=== PATIENT | female | born 1950 | race Caucasian/White ===

== ENCOUNTER → 2018-03-27 | Outpatient (REF) | payer MEDICARE, OTHER, SELFPAY | LOC: LAB 15:24 | PROVIDERS: PCP Orthopaedic Surgery; Visit Provider Orthopaedic Surgery | DX: T84.093A Other mechanical complication of internal left knee prosthesis, initial encounter (principal); T81.4XXD Infection following a procedure, subsequent encounter | CPT/HCPCS: 87070; 87075; 87205; 87801; 89051 ==

== ENCOUNTER 2018-06-10 07:19 | Emergency (ER) | payer MEDICARE, OTHER, SELFPAY ==
[2018-04-16 18:56] VITALS: BMI 18.3
[2018-06-10] VITALS (7 sets, daily range): BP systolic 106–122; BP diastolic 58–78; PULSE 71–91; RESP 16–21; TEMP 36.9; O2SAT 99–100; BMI 17.9
--- NOTE | 2018-06-10 07:34 | ED.ABDPAIN ---
HPI - Abdominal Pain General Chief Complaint: Abdominal Pain Stated Complaint: SEVERE STOMACH PAIN, NAUSEA Time Seen by Provider: 06/10/18 07:27 Source: patient Mode of arrival: ambulatory History of Present Illness HPI narrative: Patient is a 67-year-old female who presents with vomiting and diarrhea. She has had a complicated last 6-7 months. She had a knee replaced in December, the knee got infected she had multiple courses of IV antibiotics and he was taken out she continued IV antibiotics. She had developed atrial fibrillation after surgery. On her knee was again replaced. She recently had blood work is with her primary care provider add a stool sample she was found to have C diff. She said that she has always had some loose watery diarrhea some of which started before December but has certainly gotten worse since all of her surgeries and antibiotics. She has an appointment to see an infectious disease specialist but not until later this month she was started on Dificid 5 days ago. This morning she vomited 2-5 times and has some abdominal cramping. No fevers. She feels like her diarrhea is about the same. She is also on iron through her stool is dark. She actually says she has had some abdominal cramping off and on for about the last 1 week what it had been bad. She denies any severe pain now. However she is also on Eliquis for her new onset atrial fibrillation. She is not vomiting any blood. MD complaint: abdominal pain Related Data Home Medications Medication Instructions Recorded Confirmed acetaminophen 650 mg PO Q8H PRN 03/17/18 06/10/18 apixaban 5 mg PO BID 03/17/18 06/10/18 ascorbic acid (vitamin C) 1,000 mg PO QDAY 03/17/18 06/10/18 cholecalciferol (vitamin D3) 4,000 unit PO DAILY 03/17/18 06/10/18 ferrous sulfate 325 mg PO BID 03/17/18 06/10/18 ondansetron HCl 4 mg PO Q6H PRN 03/17/18 06/10/18 adhevke-[id number]-silicon 1 tab PO DAILY 06/10/18 06/10/18 [ADVANCED Calcium] dexlansoprazole [Dexilant] 1 cap PO QPM 06/10/18 06/10/18 diltiazem HCl [DILT-XR] 1 cap PO DAILY 06/10/18 06/10/18 fidaxomicin [Dificid] 200 mg PO BID 06/10/18 06/10/18 vitamin B complex 1 cap PO DAILY 06/10/18 06/10/18 Previous Rx's Medication Instructions Recorded tramadol 100 mg PO QID PRN #60 tab 04/18/18 Allergies Allergy/AdvReac Type Severity Reaction Status Date / Time morphine Allergy Intermediate Nausea Verified 04/16/18 15:16 ceftriaxone [CEFTRIAXONE] AdvReac Severe INTERMITTENT Verified 04/16/18 15:16 FEVERS propoxyphene [From DARVON] AdvReac Intermediate nausea/vomi Verified 04/16/18 15:16 ting Review of Systems Review of Systems All systems reviewed & are unremarkable except as noted in HPI and below Constitutional Denies chills, Denies fever(s), Denies lethargy and Denies weakness Cardiovascular Denies chest pain, Denies irregular heart rhythm, Denies lightheadedness, Denies palpitations, Denies dyspnea, Denies dyspnea on exertion and Denies orthopnea Respiratory Denies cough, Denies dyspnea, Denies dyspnea on exertion and Denies wheezing Gastrointestinal Gastrointestinal: Reports as per HPI Musculoskeletal Denies back pain, Denies muscle weakness, Denies numbness and Denies tingling Integumentary/Breasts Denies pruritus, Denies erythema, Denies rash and Denies wounds Neurologic Denies numbness, Denies tingling and Denies weakness Endocrine Denies palpitations Allergic/Immunologic Denies wheezing [facility] Medical History Anemia (Acute) History of total right knee replacement (Acute) 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) Osteoarthritis (Acute) Septic arthritis (Acute) Septic shock (Acute) Surgical History Status post revision of total replacement of right knee (Acute) Hx of total knee arthroplasty (Acute) Social History Smoking Status: Never smoker alcohol intake: current Exam Initial Vital Signs Initial Vital Signs: Vital Signs Temperature 98.4 F 06/10/18 07:29 Pulse Rate 91 H 06/10/18 07:29 Respiratory Rate 20 06/10/18 07:29 Blood Pressure 119/67 06/10/18 07:29 Pulse Oximetry 100 06/10/18 07:29 Const General: cooperative, well developed and No in distress Nutritional Appearance: thin Orientation: alert, awake and oriented x3 HENMT Head: normal to inspection and normocephalic Eyes Pupils: PERRL EOM: EOM intact bilaterally Neck Neck: full ROM and no meningeal signs Chest Chest: normal inspection of the chest Resp Effort & Inspection: normal respiratory effort Auscultation: clear to auscultation bilaterally Cardio Rhythm: regular rhythm Heart Sounds: S1 normal and S2 normal GI Inspection: normal to inspection Palpation: soft and tender (mild diffuse tenderness) Skin General: no rashes or lesions noted, No jaundice and No petechiae Neuro General: alert, awake and oriented x3 Course Orders Ordered: ED Orders 06/10/18 09:10 CT abdomen pelvis w con Stat 06/10/18 11:26 Consult to Physician Stat Discontinued Medications Sodium Chloride (Normal Saline 0.9%) 1,000 mls @ 1,000 mls/hr IV CONT GAVI Last Infusion: 06/10/18 10:52 Dose: 0 mls/hr Admin: 06/10/18 08:03 Dose: 1,000 mls/hr Sodium Chloride (Normal Saline 0.9%) 1,000 mls @ 150 mls/hr IV CONT GAVI Last Infusion: 06/10/18 15:43 Dose: 0 mls/hr Admin: 06/10/18 15:02 Dose: 150 mls/hr Ketorolac Tromethamine (Toradol) 15 mg IV NOW ONE Stop: 06/10/18 07:51 Last Admin: 06/10/18 08:03 Dose: 15 mg Ondansetron HCl (Zofran) 4 mg IV NOW ONE Stop: 06/10/18 07:51 Last Admin: 06/10/18 08:03 Dose: 4 mg Consultations Consultation #1: Dr. Cardenas coming to evaluate patient. Will go to OR. Realized on Eliquis, we don't have reversal, with need factor 10 a, she does not have major hemorrhage on does not require Kecentra although we do have that. Time: 10:09 Consultation #2: Dr. Bravo, at [facility] has been updated patient's symptoms test results and availability here at [facility]. She graciously accepts patient for transfer. Time: 12:44 Vital Signs - 8 hr 06/10/18 10:16 06/10/18 11:03 06/10/18 12:02 Pulse Rate 79 79 77 Respiratory Rate 18 20 16 Blood Pressure [Right Arm] 114/62 114/63 106/70 Pulse Oximetry 100 99 100 06/10/18 13:00 06/10/18 13:30 06/10/18 14:30 Pulse Rate 71 75 80 Respiratory Rate 21 18 20 Blood Pressure [Right Arm] 116/78 122/58 H 116/62 Pulse Oximetry 100 100 100 MDM - Abdominal Pain Lab Data Result diagrams: 06/10/18 07:38 06/10/18 07:38 Lab Results 06/10/18 06/10/18 06/10/18 Range/Units 07:38 07:38 07:38 WBC 7.9 (4.5-11.0) X10^3/uL RBC 3.74 L (4.0-5.2) X10^6/uL Hgb 10.7 L (12.0-16.0) g/dL Hct 32.3 L (36-46) % MCV 86.4 (80-100) fL MCH 28.5 (26-34) PG MCHC 33.0 (30-36) % RDW 14.2 (11.6-14.8) % Plt Count 398 (150-400) X10^3/uL Neut % (Auto) 79.6 H (50-75) % Lymph % (Auto) 9.0 L (25-40) % [place] % (Auto) 8.9 (3-14) % Eos % (Auto) 1.8 L (2-4) % Baso % (Auto) 0.7 (0-2) % Neut # (Auto) 6300 H (7745-1480) /uL PT (10.1-12.7) SECONDS INR (0.9-1.3) APTT (26.4-36.2) SECONDS Sodium 142 (137-145) mmol/L Potassium 3.7 (3.4-5.1) mmol/L Chloride 99 (98-107) mmol/L Carbon Dioxide 33 H (22-32) mmol/L BUN 11 (7-17) mg/dL Creatinine 0.60 (0.52-1.04) mg/dL Estimated GFR > 60.0 (>60) mL/min BUN/Creatinine Ratio 18.3 (6-22) Glucose 101 (80-110) mg/dL Lactate 0.8 (0.7-2.1) mmol/L Calcium 9.4 (8.4-10.2) mg/dL Total Bilirubin 0.5 (0.2-1.3) mg/dL AST 26 (14-36) IU/L ALT 22 (9-52) IU/L Alkaline Phosphatase 76 (38-126) U/L Total Protein 6.8 (6.3-8.2) g/dL Albumin 3.9 (3.5-5.0) g/dL Globulin 2.9 (1.7-4.1) g/dL Albumin/Globulin Ratio 1.3 (1.0-2.8) Lipase 108 (23-300) U/L 06/10/18 Range/Units 07:38 WBC (4.5-11.0) X10^3/uL RBC (4.0-5.2) X10^6/uL Hgb (12.0-16.0) g/dL Hct (36-46) % MCV (80-100) fL MCH (26-34) PG MCHC (30-36) % RDW (11.6-14.8) % Plt Count (150-400) X10^3/uL Neut % (Auto) (50-75) % Lymph % (Auto) (25-40) % [place] % (Auto) (3-14) % Eos % (Auto) (2-4) % Baso % (Auto) (0-2) % Neut # (Auto) (2116-9680) /uL PT 19.1 H (10.1-12.7) SECONDS INR 1.8 H (0.9-1.3) APTT 33 (26.4-36.2) SECONDS Sodium (137-145) mmol/L Potassium (3.4-5.1) mmol/L Chloride (98-107) mmol/L Carbon Dioxide (22-32) mmol/L BUN (7-17) mg/dL Creatinine (0.52-1.04) mg/dL Estimated GFR (>60) mL/min BUN/Creatinine Ratio (6-22) Glucose (80-110) mg/dL Lactate (0.7-2.1) mmol/L Calcium (8.4-10.2) mg/dL Total Bilirubin (0.2-1.3) mg/dL AST (14-36) IU/L ALT (9-52) IU/L Alkaline Phosphatase (38-126) U/L Total Protein (6.3-8.2) g/dL Albumin (3.5-5.0) g/dL Globulin (1.7-4.1) g/dL Albumin/Globulin Ratio (1.0-2.8) Lipase (23-300) U/L Point of care testing: Urine Dip Bedside Urine Glucose Negative Bedside Urine Bilirubin - Negative Bedside Urine Ketone - Negative Urine Specific [place] 1.015 Bedside Urine Occult Blood - Negative Bedside Urine pH 6.0 Bedside Urine Protein - Negative Bedside Urine Urobilinogen - Negative Bedside Urine Nitrite - Negative Bedside Urine Leukocytes - Negative Esterase Imaging Data CT scan - abdomen: Radiologist's impression: PROCEDURE: CT ABDOMEN PELVIS W CON INDICATIONS: pain vomiting, mid abdominal pain TECHNIQUE: After the administration of oral and intravenous contrast, 5 mm thick sections acquired from the diaphragms to the symphysis. 5 mm thick coronal and sagittal reformats were performed. For radiation dose reduction, the following was used: automated exposure control, adjustment of mA and/or kV according to patient size. COMPARISON: None. FINDINGS: Image quality: Excellent. ABDOMEN: Lung bases: Lung bases are clear. Heart size is normal. Solid organs: Liver is normal in size and enhancement. Gallbladder appears normal. Biliary system is non-dilated. Pancreas enhances normally. Spleen is normal in size and enhancement. No adrenal nodules. Kidneys are normal in size and enhancement, without hydronephrosis. Peritoneum and bowel: Stomach and proximal small bowel loops are normal in caliber and wall thickness. More inferiorly the small bowel becomes mildly dilated towards the right lower quadrant and demonstrates feculent transformation of small bowel contents in areas where the small bowel measures approximately 3.1-3.2 cm in maximal dimension. For example, refer to the small bowel loop at the right lower quadrant and series 2 image 61. This leads to the right colon, where much of the right colon is intussuscepted and extends into the proximal transverse colon, with the combined diameter of the area of intussusception measuring up to 5.7 cm in axial dimension and over an estimated 15 cm in length with the intussusception area traversing first anteriorly and then leftward. Within the intussuscepted portion of colon mesenteric arteries and veins appear patent several mildly prominent lymph nodes can be seen measuring almost 10 mm in diameter and rounded. For example, please refer to series 2 image 53. No free air. There is a small amount of free fluid within the leaves of the mesentery and in the hepatorenal space near the posterior border of the lower liver, but no definite peritoneal masses are seen. Nodes and vessels: No retroperitoneal or mesenteric adenopathy. Aorta and inferior vena cava are normal in caliber. Miscellaneous: No ventral hernias. PELVIS: Genitourinary: Bladder wall thickness is normal. Miscellaneous: No inguinal hernias or adenopathy. The intussusception noted during the abdominal portion of this report above traverses into the pelvis do to redundancy of the transverse colon, and the left colon and sigmoid colon are relatively collapsed indicating a significant degree of obstructive influence by the intussusception. Sigmoid diverticulosis is present, relatively prominent, but no acute diverticulitis is seen. Slight free fluid deep within the pelvis. Bones: No suspicious bony lesions. No vertebral body compression fractures. IMPRESSION: The large area of colonic intussusception noted within the abdomen/pelvis appears to involve much of the right colon and a portion of the transverse colon, with early obstructive influence on the distal small bowel. Oral contrast has transited through much of the small bowel, however, indicating that the degree of obstruction is not complete. The lead point of the intussusception is within the middle third of the transverse colon and likely is associated with a colonic malignancy given the mural thickening of the intussusception and the mild prominence of lymph nodes within the intussuscepted mesentery fat along the mesenteric vessels. No distant metastatic disease is seen. Surgical consultation is recommended, small amount of free fluid noted within the peritoneal space does not appear associated with peritoneal masses. No distant adenopathy or metastatic disease involving the lung bases or liver is seen. These findings were immediately discussed in detail with the emergency room physician caring for the patient. Dictated by: Kayode Goodrich M.D. on 06/10/2018 at 9:45 Approved by: Kayode Goodrich M.D. on 06/10/2018 at 10:00 [facility] [place] Narrative Medical decision making narrative: Patient has been all smoking weight since all the complications with her knee she has been unable to keep her put any weight on. She started having some abdominal discomfort last week she has had some cramping. She had 2-5 episodes of vomiting this morning. No bloody diarrhea. She is found to have 0 large colonic intussusception. Unable to have surgery here due to Eliquis. She may require pre operative factor Xa. The patient is transferred to [facility] for further management. Discharge Plan Departure Patient Disposition: [facility] Clinical Impression: Colonic intussusception Discharge Date/Time: 06/10/18 15:30 Interventions: ED Discharge Assessment Last Done: 06/10/18 15:41 Prescriptions: No Action ondansetron HCl 4 mg Tablet 4 mg PO Q6H PRN (Reason: Nausea And Vomiting) RF: 0 acetaminophen 650 mg Tablet Extended Release 650 mg PO Q8H PRN (Reason: Pain) RF: 0 ascorbic acid (vitamin C) 500 mg Tablet 1,000 mg PO QDAY RF: 0 ferrous sulfate 325 mg (65 mg iron) Tablet 325 mg PO BID RF: 0 cholecalciferol (vitamin D3) 2,000 unit Tablet 4,000 unit PO DAILY RF: 0 apixaban 5 mg Tablet 5 mg PO BID RF: 0 tramadol 50 mg Tablet 100 mg PO QID PRN (Reason: Moderate Pain) Qty: 60 RF: 0 dexlansoprazole [Dexilant] 60 mg capsule,biphase delayed releas 1 cap PO QPM RF: 0 diltiazem HCl [DILT-XR] 120 mg capsule,ext.rel 24h degradable 1 cap PO DAILY RF: 0 vitamin B complex Capsule 1 cap PO DAILY RF: 0 fidaxomicin [Dificid] 200 mg tablet 200 mg PO BID RF: 0 ipgtsve-wbcakhqf-P0-K2-silicon [ADVANCED Calcium] 200 mg calcium- 200 unit Tablet 1 tab PO DAILY RF: 0 Referrals: Sridhar Sawyer MD [Primary Care Provider] -
--- NOTE | 2018-06-10 08:00 | PC.NURSE ---
C-DIFF CONTACT PRECAUTIONS PLACED OUTSIDE OF ROOM.
[2018-06-10] MEDS: SODIUM CHLORIDE 0.9% 1,000 ML 1000 ML IV (08:03)
[2018-06-10] MEDS: ONDANSETRON 4 MG/2 ML INJ IV (08:03)
[2018-06-10] MEDS: KETOROLAC 60 MG/2 ML VIAL 15 MG IV (08:03)
[2018-06-10 08:11] LABS: Add Manual Diff / Slide Review NO; Basophils Percent Auto 0.7 % (0-2); Eosinophils Percent Auto 1.8 % (2-4); Hematocrit 32.3 % (36-46); Hemoglobin 10.7 g/dL (12.0-16.0); Mean Corpuscular Hemoglobin 28.5 PG (26-34); Mean Corpuscular Volume 86.4 fL (80-100); Monocytes Percent Auto 8.9 % (3-14); Neutrophils Absolute Auto 6300 /uL (3000-5900); Neutrophils Percent Auto 79.6 % (50-75); Platelet Count 398 X10^3/uL (150-400); Red Blood Cell Count 3.74 X10^6/uL (4.0-5.2); Red Cell Distribution Width 14.2 % (11.6-14.8); White Blood Cell Count 7.9 X10^3/uL (4.5-11.0)
[2018-06-10 08:21] LABS: Alanine Aminotransferase 22 IU/L (9-52); Albumin 3.9 g/dL (3.5-5.0); Albumin Globulin Ratio 1.3 (1.0-2.8); Alkaline Phosphatase 76 U/L (38-126); Aspartate Aminotransferase 26 IU/L (14-36); BUN Creatinine Ratio 18.3 (6-22); Bilirubin Total 0.5 mg/dL (0.2-1.3); Blood Urea Nitrogen 11 mg/dL (7-17); Calcium 9.4 mg/dL (8.4-10.2); Carbon Dioxide 33 mmol/L (22-32); Chloride 99 mmol/L (98-107); Estimated Glomerular Filt Rate > 60.0 mL/min (>60); Globulin 2.9 g/dL (1.7-4.1); Glucose 101 mg/dL (80-110); HEMOLYSIS < 15 (0-50); Lipase 108 U/L (23-300); Potassium 3.7 mmol/L (3.4-5.1); Sodium 142 mmol/L (137-145); Total Protein 6.8 g/dL (6.3-8.2)
[2018-06-10 08:23] LABS: Lactate (Lactic Acid) 0.8 mmol/L (0.7-2.1)
--- NOTE | 2018-06-10 08:40 | PC.NURSE ---
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 PER PROVIDER ORDERS.
--- NOTE | 2018-06-10 09:10 | DI.CT.S_ITS ---
PROCEDURE: CT ABDOMEN PELVIS W CON INDICATIONS: pain vomiting, mid abdominal pain TECHNIQUE: After the administration of oral and intravenous contrast, 5 mm thick sections acquired from the diaphragms to the symphysis. 5 mm thick coronal and sagittal reformats were performed. For radiation dose reduction, the following was used: automated exposure control, adjustment of mA and/or kV according to patient size. COMPARISON: None. FINDINGS: Image quality: Excellent. ABDOMEN: Lung bases: Lung bases are clear. Heart size is normal. Solid organs: Liver is normal in size and enhancement. Gallbladder appears normal. Biliary system is non-dilated. Pancreas enhances normally. Spleen is normal in size and enhancement. No adrenal nodules. Kidneys are normal in size and enhancement, without hydronephrosis. Peritoneum and bowel: Stomach and proximal small bowel loops are normal in caliber and wall thickness. More inferiorly the small bowel becomes mildly dilated towards the right lower quadrant and demonstrates feculent transformation of small bowel contents in areas where the small bowel measures approximately 3.1-3.2 cm in maximal dimension. For example, refer to the small bowel loop at the right lower quadrant and series 2 image 61. This leads to the right colon, where much of the right colon is intussuscepted and extends into the proximal transverse colon, with the combined diameter of the area of intussusception measuring up to 5.7 cm in axial dimension and over an estimated 15 cm in length with the intussusception area traversing first anteriorly and then leftward. Within the intussuscepted portion of colon mesenteric arteries and veins appear patent several mildly prominent lymph nodes can be seen measuring almost 10 mm in diameter and rounded. For example, please refer to series 2 image 53. No free air. There is a small amount of free fluid within the leaves of the mesentery and in the hepatorenal space near the posterior border of the lower liver, but no definite peritoneal masses are seen. Nodes and vessels: No retroperitoneal or mesenteric adenopathy. Aorta and inferior vena cava are normal in caliber. Miscellaneous: No ventral hernias. PELVIS: Genitourinary: Bladder wall thickness is normal. Miscellaneous: No inguinal hernias or adenopathy. The intussusception noted during the abdominal portion of this report above traverses into the pelvis do to redundancy of the transverse colon, and the left colon and sigmoid colon are relatively collapsed indicating a significant degree of obstructive influence by the intussusception. Sigmoid diverticulosis is present, relatively prominent, but no acute diverticulitis is seen. Slight free fluid deep within the pelvis. Bones: No suspicious bony lesions. No vertebral body compression fractures. IMPRESSION: The large area of colonic intussusception noted within the abdomen/pelvis appears to involve much of the right colon and a portion of the transverse colon, with early obstructive influence on the distal small bowel. Oral contrast has transited through much of the small bowel, however, indicating that the degree of obstruction is not complete. The lead point of the intussusception is within the middle third of the transverse colon and likely is associated with a colonic malignancy given the mural thickening of the intussusception and the mild prominence of lymph nodes within the intussuscepted mesentery fat along the mesenteric vessels. No distant metastatic disease is seen. Surgical consultation is recommended, small amount of free fluid noted within the peritoneal space does not appear associated with peritoneal masses. No distant adenopathy or metastatic disease involving the lung bases or liver is seen. These findings were immediately discussed in detail with the emergency room physician caring for the patient. Dictated by: Kayode Goodrich M.D. on 06/10/2018 at 9:45 Approved by: Kayode Goodrich M.D. on 06/10/2018 at 10:00
--- NOTE | 2018-06-10 11:30 | P.CONS_ITS ---
History of Present Illness Date Patient Seen: 06/10/18 Time Patient Seen: 11:00 Chief complaint: SEVERE STOMACH PAIN, NAUSEA Reason for consult: Intussusception Narrative: The patient is a woman who has history actually begins with a failed knee procedure that resulted in sepsis. Ultimately the knee had to be replaced. This process took from December to March. In March she had her knee replaced. During the course she had extended periods of antibiotic treatment and was tested for C diff. She does not recall having diarrhea however. In any event she was treated and is presently under treatment for C diff. She has been having abdominal issues and has been unable to gain weight throughout this process. However in the last month she has developed crampy abdominal pain and now in the last several days has severe abdominal pain with nausea and vomiting. The crampy abdominal pain would come and go without any particular pattern she could ascertain. She has decreased her p.o. intake because it seemed to decrease the frequency of her crampy abdominal pain. She has probably lost 20 lb she says over the last few months because of this decreased intake and being ill. She is due for colonoscopy. Of interest, her brother and her father at a young age of colon cancer. She has not passed any blood per rectum and has not had any hematemesis. 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) Osteoarthritis (Acute) Septic arthritis (Acute) Septic shock (Acute) Surgical History Status post revision of total replacement of right knee (Acute) Hx of total knee arthroplasty (Acute) Social History Smoking Status: Never smoker alcohol intake: current Meds Home Medications Medication Instructions Recorded Confirmed Type acetaminophen 650 mg PO Q8H PRN 03/17/18 04/16/18 History apixaban 5 mg PO BID 03/17/18 04/16/18 History ascorbic acid (vitamin C) 1,000 mg PO QDAY 03/17/18 04/16/18 History cholecalciferol (vitamin D3) 4,000 unit PO DAILY 03/17/18 04/16/18 History diltiazem HCl 120 mg PO DAILY 03/17/18 04/16/18 History ferrous sulfate 325 mg PO BID 03/17/18 04/16/18 History ondansetron HCl 4 mg PO Q6H PRN 03/17/18 04/16/18 History aspirin 81 mg PO BID #60 tab 04/18/18 Rx tramadol 100 mg PO QID PRN #60 tab 04/18/18 Rx dexlansoprazole [Dexilant] 1 cap PO QPM 06/10/18 06/10/18 History Allergies Allergy/AdvReac Type Severity Reaction Status Date / Time morphine Allergy Intermediate Nausea Verified 04/16/18 15:16 ceftriaxone [CEFTRIAXONE] AdvReac Severe INTERMITTENT Verified 04/16/18 15:16 FEVERS propoxyphene [From DARVON] AdvReac Intermediate nausea/vomi Verified 04/16/18 15 :16 ting Review of Systems Review of Systems Patient denies any double vision pain in her eyes no cough cold asthma. No chest pain or heart problems. No black or bloody bowel movements. No seizures or blackouts. Exam Vital Signs (past 8 hours): - 06/10/18 07:29 06/10/18 10:16 06/10/18 11:03 Temperature 98.4 F Pulse Rate 91 H 79 79 Respiratory Rate 20 18 20 Blood Pressure 119/67 Blood Pressure [Right Arm] 114/62 114/63 Pulse Oximetry 100 100 99 Oxygen Delivery Method Room Air Narrative Exam Narrative: Operative no apparent distress. Her eyes are nonicteric her conjunctivae are pale her oral mucosa is pink and moist there are no nodes in the neck or supraclavicular areas. Trachea is midline and mobile. Thyroid is not enlarged. Lungs are clear to auscultation without rales or rhonchi. Heart regular rate and rhythm without murmur gallop. Abdomen lower portion of the abdomen is distended her abdomen is soft with localized tenderness in the right lower abdomen. There is a sense of fullness in this area. Objective Imaging CT scan - abdomen: My impression: Patient appears to have a colonic intussusception involving the ascending and transverse colon. There is no free air. Small bowel is beginning to dilate but not particularly so. There is fecalization of the distal small bowel. Radiologist's impression: Similar to my own Labs Result Diagrams: 06/10/18 07:38 06/10/18 07:38 Labs: Laboratory Results - last 24 hr 06/10/18 06/10/18 06/10/18 07:38 07:38 07:38 WBC 7.9 RBC 3.74 L Hgb 10.7 L Hct 32.3 L MCV 86.4 MCH 28.5 MCHC 33.0 RDW 14.2 Plt Count 398 Neut % (Auto) 79.6 H Lymph % (Auto) 9.0 L Tens[place] % (Auto) 8.9 Eos % (Auto) 1.8 L Baso % (Auto) 0.7 Neut # (Auto) 6300 H Sodium 142 Potassium 3.7 Chloride 99 Carbon Dioxide 33 H BUN 11 Creatinine 0.60 Estimated GFR > 60.0 BUN/Creatinine Ratio 18.3 Glucose 101 Lactate 0.8 Calcium 9.4 Total Bilirubin 0.5 AST 26 ALT 22 Alkaline Phosphatase 76 Total Protein 6.8 Albumin 3.9 Globulin 2.9 Albumin/Globulin Ratio 1.3 Lipase 108 Assessment & Plan (1) Intussusception of colon: Current visit: Yes Status: Acute Plan: Assessment/Plan Narrative: I plan to take the patient to the operating room. Although I do not think she has necrotic intestine at this time given the fact that the mesentery of the colon seems to be antiseptic does well I a think it prudent to proceed urgently. However, patient took her Eliquis this morning. The only reversal agent as factor Xa which we do not have. Even with that there may be considerable bleeding. I would recommend transfer to a tertiary care higher level of care center who has a blood bank and supplies capable of dealing with this problem. I have discussed this with Dr. Márquez, the patient and her .
[2018-06-10 11:37] LABS: INR 1.8 (0.9-1.3); Prothrombin Time 19.1 SECONDS (10.1-12.7)
[2018-06-10 11:40] LABS: PTT Partial Thromboplastin Tim 33 SECONDS (26.4-36.2)
[2018-06-10] MEDS: SODIUM CHLORIDE 0.9% 1,000 ML 150 ML IV (15:02)
== END 2018-06-10 15:30 | disposition short-term general hospital (02) ==
PROVIDERS: Emergency Provider Emergency Medicine; Family Provider Orthopaedic Surgery; PCP Family Medicine
DX: K56.1 Intussusception (principal)
CPT/HCPCS: 36591; 74177; 80053; 81003; 83605; 83690; 85025; 85610; 85730; 96361; 96374; 96375; 99284; J1885; J2405; Q9967

== ENCOUNTER → 2020-09-28 10:40 | Outpatient (CLI) | payer MEDICARE, SELFPAY ==
[2018-04-16 18:56] VITALS: BMI 18.3
[2020-09-28 11:04] LABS: Alanine Aminotransferase 22 IU/L (<35); Albumin 4.5 g/dL (3.5-5.0); Albumin Globulin Ratio 1.5 (1.0-2.8); Alkaline Phosphatase 68 U/L (38-126); Aspartate Aminotransferase 32 IU/L (14-36); BUN Creatinine Ratio 30.2 (6-22); Bilirubin Total 0.7 mg/dL (0.2-1.3); Blood Urea Nitrogen 19 mg/dL (7-17); Calcium 9.2 mg/dL (8.4-10.2); Carbon Dioxide 31 mmol/L (22-32); Chloride 101 mmol/L (98-107); Estimated Glomerular Filt Rate > 60.0 mL/min (>60); Glucose 85 mg/dL (80-110); HEMOLYSIS < 15 (0-50); Potassium 4.2 mmol/L (3.4-5.1); Sodium 138 mmol/L (137-145); Total Protein 7.5 g/dL (6.3-8.2)
[2020-09-28 11:35] LABS: Carcinoembryonic Antigen 2.1 ng/mL (0.1-3.0)
== END ==
PROVIDERS: Family Provider Orthopaedic Surgery; PCP Family Medicine; Referring Provider Internal Medicine; Visit Provider Internal Medicine
DX: Z85.038 Personal history of other malignant neoplasm of large intestine (principal)
CPT/HCPCS: 36415; 80053; 82378

== ENCOUNTER → 2020-09-29 10:00 | Outpatient (CLI) | payer MEDICARE, OTHER, SELFPAY ==
[2018-04-16 18:56] VITALS: BMI 18.3
--- NOTE | 2020-09-29 11:28 | DI.CT.S_ITS ---
PROCEDURE: CT CHEST ABD PEL W CON INDICATIONS: HISTORY OF COLON CANCER TECHNIQUE: After the administration of oral and intravenous contrast, 5 mm thick sections acquired from the lung apices to the symphysis. 5 mm coronal and sagittal reformats were performed, with additional 7 mm coronal MIP reformats through the lungs. For radiation dose reduction, the following was used: automated exposure control, adjustment of mA and/or kV according to patient size. COMPARISON: [facility], CT, CT ABDOMEN PELVIS W CON, 06/10/2018, 9:20. FINDINGS: Image quality: Excellent. CHEST: Lungs and pleura: No acute airspace opacities. No pleural effusions or pneumothorax. Central and peripheral airways appear patent and normal in caliber. Mediastinum: Heart size is normal. No pericardial effusion. No mediastinal or hilar adenopathy by size criteria. Thoracic aorta and central pulmonary arteries are normal in size. Esophagus is normal in caliber. No hiatal hernia. Chest wall: No axillary or supraclavicular adenopathy by size criteria. Thyroid gland appears normal where well seen. ABDOMEN: Solid organs: Liver is normal in size and enhancement. Gallbladder appears normal. Biliary system is non dilated. Pancreas enhances normally. Spleen is normal in size and enhancement. No adrenal nodules. Kidneys demonstrate normal size and enhancement, without hydronephrosis. Peritoneum and bowel: Bowel loops demonstrate normal wall thickness and caliber. No free fluid or air. Nodes and vessels: No retroperitoneal or mesenteric adenopathy by size criteria. Aorta and inferior vena cava are normal in size. Miscellaneous: No ventral hernias. PELVIS: Genitourinary: Bladder wall thickness is normal. Miscellaneous: No inguinal hernias or adenopathy. Bones: No suspicious bony lesions. No vertebral body compression fractures. IMPRESSION: No adenopathy found, no mass lesion identified. No distant metastatic disease seen. Reported prior intussusception related to colon carcinoma which presumably has been resected and there are several surgical clips are noted at the right lower quadrant. Dictated by: Kayode Goodrich M.D. on 09/29/2020 at 13:01 Approved by: Kayode Goodrich M.D. on 09/29/2020 at 13:05
== END ==
PROVIDERS: Family Provider Orthopaedic Surgery; PCP Family Medicine; Referring Provider Family Medicine; Visit Provider Internal Medicine
DX: Z08 Encounter for follow-up examination after completed treatment for malignant neoplasm (principal); Z85.038 Personal history of other malignant neoplasm of large intestine
CPT/HCPCS: 71260; 74177; Q9967

== ENCOUNTER → 2022-09-19 11:34 | Outpatient (CLI) | payer MEDICARE, OTHER, SELFPAY ==
[2022-09-17 13:31] VITALS: BMI 18.3
--- NOTE | 2022-09-19 11:37 | DI.CT.S_ITS ---
PROCEDURE: CT CHEST ABD PEL W CON INDICATIONS: Malignant neoplasm of colon, unspecified TECHNIQUE: After the administration of intravenous contrast, axial sections acquired from the supraclavicular neck to the pubic symphysis. Coronal and sagittal reformats were performed. For radiation dose reduction, the following was used: automated exposure control, adjustment of mA and/or kV according to patient size. COMPARISON: CT, CT ABDOMEN PELVIS W CON, 06/10/2018, 9:20. [facility], CT, CT CHEST ABD PEL W CON, 09/29/2020, 11:02. FINDINGS: Image quality: Excellent. CHEST: Lower Neck: No enlarged lymph nodes. Thyroid: Within normal limits. Axillae: No enlarged lymph nodes. Chest Wall: Unremarkable. Lungs and Airways: No consolidation or suspicious nodules. Pleura: No pneumothorax or pleural effusions. Heart: Heart size is normal. No pericardial effusion. Thoracic Vessels: The aorta and pulmonary arteries demonstrate normal size. Mediastinum and Babs: No enlarged lymph nodes. Esophagus: No wall thickening. No hiatal hernia. ABDOMEN: Liver: Unremarkable. Gallbladder: Unremarkable. Biliary ducts: Unremarkable. Pancreas: Unremarkable. Spleen: Unremarkable. Adrenal Glands: Unremarkable. Kidneys and Ureters: Unremarkable. Stomach and Bowel: Stomach, small bowel loops, and colon are unremarkable. Significant colonic diverticula are present without visualized change. Peritoneum: No abnormal intraperitoneal fluid. No free air. Ventral Wall: No hernia. Abdominal Nodes: No retroperitoneal or mesenteric adenopathy by size criteria. Vessels: Aorta and inferior vena cava are normal in size. PELVIS: Pelvic Organs: Unremarkable. Bladder: Unremarkable. Pelvic Nodes: No enlarged lymph nodes. Miscellaneous: No inguinal hernias are seen. Bones: Unremarkable. IMPRESSION: 1. Stable interval exam without evidence recurrent or residual disease. Dictated by: Yvrose Luu M.D. on 09/19/2022 at 17:19 Approved by: Yvrose Luu M.D. on 09/19/2022 at 17:21
[2022-09-19 12:22] LABS: BUN Creatinine Ratio 21.3 (6-22); Blood Urea Nitrogen 17 mg/dL (7-17); Calcium 9.3 mg/dL (8.4-10.2); Carbon Dioxide 30 mmol/L (22-32); Chloride 98 mmol/L (98-107); Estimated Glomerular Filt Rate > 60 mL/min (>60); Glucose 91 mg/dL (80-110); HEMOLYSIS < 15 (0-50); Potassium 4.2 mmol/L (3.4-5.1); Sodium 139 mmol/L (137-145)
== END ==
PROVIDERS: Family Provider Orthopaedic Surgery; PCP Family Medicine; Referring Provider Family Medicine; Visit Provider Family Medicine
DX: C18.9 Malignant neoplasm of colon, unspecified (principal); K57.90 Diverticulosis of intestine, part unspecified, without perforation or abscess without bleeding
CPT/HCPCS: 36415; 71260; 74177; 80048; Q9967

== ENCOUNTER → 2023-06-11 11:20 | Outpatient (CLI) | payer MEDICARE, OTHER, SELFPAY ==
[2022-09-17 13:31] VITALS: BMI 18.3
--- NOTE | 2023-06-11 11:27 | DI.RAD.S_ITS ---
PROCEDURE: XR CERVICAL SPINE 2V OR 3V INDICATIONS: Cervicalgia TECHNIQUE: 3 view(s) of the cervical spine were acquired. COMPARISON: None. FINDINGS: Bones: No fractures or dislocations to the C7 level. [id number] degenerative change in the cervical spine. The lateral masses of C1 appear intact on the odontoid view. No suspicious bony lesions. Soft tissues: No prevertebral soft tissue swelling. IMPRESSION: Isrg-gi-oessefeo degenerative change in the cervical spine. Dictated by: Rudy King M.D. on 06/11/2023 at 17:01 Approved by: Rudy King M.D. on 06/11/2023 at 17:02
--- NOTE | 2023-06-11 11:28 | DI.RAD.S_ITS ---
PROCEDURE: XR THORACIC SPINE 3V INDICATIONS: Cervicalgia TECHNIQUE: 3 views of the thoracic spine were acquired. COMPARISON: [facility], CR, XR CERVICAL SPINE 2V OR 3V, 06/11/2023, 11:23. FINDINGS: Bones: No fractures or dislocations. No suspicious bony lesions. Lumbar scoliosis. 12 pairs of ribs are noted, and appear intact where visualized. Soft tissues: No paravertebral stripe thickening. IMPRESSION: Mild degenerative changes in the thoracic spine. Dictated by: Rudy King M.D. on 06/11/2023 at 16:59 Approved by: Rudy King M.D. on 06/11/2023 at 17:01
== END ==
PROVIDERS: Family Provider Orthopaedic Surgery; PCP Family Medicine; Referring Provider Family Medicine; Visit Provider Family Medicine
DX: M47.812 Spondylosis without myelopathy or radiculopathy, cervical region (principal); M47.814 Spondylosis without myelopathy or radiculopathy, thoracic region; M54.2 Cervicalgia; M54.9 Dorsalgia, unspecified
CPT/HCPCS: 72040; 72072

== ENCOUNTER → 2023-08-14 12:12 | Outpatient (CLI) | payer MEDICARE, OTHER, SELFPAY ==
[2022-09-17 13:31] VITALS: BMI 18.3
--- NOTE | 2023-08-14 | DI.MRI.S_ITS ---
PROCEDURE: MR CERVICAL SPINE WO CON INDICATIONS: Neck and right shoulder pain TECHNIQUE: Noncontrast sagittal T1 spin echo and T2 fast spin echo, sagittal STIR, foraminal oblique sagittal T2 fast spin echo, and axial gradient echo or T2 fast spin echo through the cervical spine. COMPARISON: [facility], CR, XR CERVICAL SPINE 2V OR 3V, 06/11/2023, 11:23. FINDINGS: Image quality: This examination is limited by involuntary motion artifact. Alignment and Curvature: There is normal bony alignment. Bone Marrow: Marrow demonstrates normal overall signal. Spinal Cord: Visualized spinal cord has normal size and signal. No cerebellar tonsillar herniation. Paraspinous Soft Tissues: No paravertebral masses. Prevertebral soft tissues are normal in thickness. Focal degenerative change is seen involving the C1-C2 interface anteriorly. C2-C3: Normal appearance. C3-C4: The disc height and disk signal are relatively well-preserved. Mild disc osteophyte complex is seen, which is eccentric to the right, with a right foraminal protrusion. There is at least moderate right-sided neural foraminal narrowing. Moderate left-sided neural foraminal narrowing is seen. No significant central canal narrowing is seen. C4-C5: The disc height is well-preserved. Loss of disc signal is seen at this level. Moderate generalized disc osteophyte complex is seen. There is a central disc osteophyte protrusion seen. Moderate facet joint hypertrophy is seen. Moderate bilateral neural foraminal narrowing is seen. Mild to moderate central canal narrowing is seen. C5-C6: Mild loss of disc height is seen. Loss of disc signal is seen. Moderate generalized disc osteophyte complex is seen. Moderate facet hypertrophy is seen, left worse than right. There is at least moderate bilateral neural foraminal narrowing seen, left worse than right. Mild to moderate central canal narrowing is seen. There is associated mass effect upon the ventral spinal cord. C6-C7: Mild loss of disc height is seen. Loss of disc signal is seen. Mild to moderate disc osteophyte complex is seen, with a mild central disc protrusion. Mild facet joint hypertrophy is seen. Moderate bilateral neural foraminal narrowing is seen. Mild central canal narrowing is seen. C7-T1: No significant abnormality is seen. IMPRESSION: Multiple levels of cervical spine degenerative change can be seen, which are worst inferiorly. Dictated by: Nik Sebastian M.D. on 08/14/2023 at 13:38 Approved by: Nik Sebastian M.D. on 08/14/2023 at 13:41
--- NOTE | 2023-08-14 | DI.MRI.S_ITS ---
PROCEDURE: MR SHOULDER RT WO CON INDICATIONS: Neck and right shoulder pain TECHNIQUE: Noncontrast oblique coronal T2 fast spin echo with fat saturation, oblique sagittal T1 spin echo and T2 fast spin echo with fat saturation, axial T1 spin echo and T2 fast spin echo with fat saturation through the shoulder. COMPARISON: None. FINDINGS: Image quality: Excellent. Rotator cuff: There is mild supraspinatus, infraspinatus, and subscapularis tendinosis. No high-grade tendon tear. Sagittal images demonstrate no muscle atrophy. Bones and bursae: No bone marrow contusions or fractures. There is mild acromioclavicular joint degeneration. The acromion demonstrates conventional anatomy, without an os acromiale. There is small amount of subcoracoid bursal fluid consistent with bursitis. Capsule and soft tissues: Labrum appears intact The long head of the biceps tendon demonstrates normal location and morphology. The rotator interval appears normal, without fibrosis. The coracohumeral ligament is normal in thickness. IMPRESSION: 1. Mild rotator cuff tendinosis. No high-grade tendon tear. No rotator cuff muscle atrophy. 2. Mild acromioclavicular and glenohumeral arthrosis. 3. Subcoracoid bursitis. Dictated by: Chuckie Deluna M.D. on 08/14/2023 at 14:06 Approved by: Chuckie Deluna M.D. on 08/14/2023 at 20:03
== END ==
PROVIDERS: Family Provider Orthopaedic Surgery; PCP Family Medicine; Referring Provider Family Medicine; Visit Provider Family Medicine
DX: M47.22 Other spondylosis with radiculopathy, cervical region (principal); M19.011 Primary osteoarthritis, right shoulder; M75.51 Bursitis of right shoulder; M54.2 Cervicalgia; M25.511 Pain in right shoulder
CPT/HCPCS: 72141; 73221

== ENCOUNTER 2024-01-18 14:17 | Inpatient (IN) | payer MEDICARE, OTHER, SELFPAY ==
[2022-09-17 13:31] VITALS: BMI 18.3
[2024-01-18] VITALS (18 sets, daily range): BP systolic 135–176; BP diastolic 71–87; PULSE 80–95; RESP 15–31; TEMP 36.5–37.7; O2SAT 94–100; BMI 19.1; BMI 19.2
[2024-01-18] MEDS: ONDANSETRON 4 MG ODT PO (14:33)
[2024-01-18] MEDS: SODIUM CHLORIDE 0.9% 1,000 ML 1000 ML IV ×2 (15:01→16:16)
--- NOTE | 2024-01-18 15:19 | DI.CT.S_ITS ---
PROCEDURE: CT ABDOMEN PELVIS W CON INDICATIONS: vomiting hx colon cancer TECHNIQUE: After the administration of intravenous contrast, axial sections acquired from the lung bases to the pubic symphysis. Coronal and sagittal reformats were performed. For radiation dose reduction, the following was used: automated exposure control, adjustment of mA and/or kV according to patient size. COMPARISON: [facility], CT, CT ABDOMEN PELVIS W CON, 06/10/2018, 9:20. FINDINGS: Image quality: Diagnostic. Lower Chest: No significant findings. ABDOMEN: Liver: No solid mass. Gallbladder: No radiopaque gallstones or wall thickening. Biliary ducts: No biliary dilation. Pancreas: No ductal dilation. Spleen: Size is within normal limits. Adrenal Glands: No adrenal nodules. Kidneys and Ureters: No hydronephrosis. No solid mass. No complex renal cystic lesion which requires follow up. Stomach and Bowel: Status post colectomy with anastomosis seen in the right mid abdomen. There are multiple loops of small bowel predominantly in the right lower abdomen with possible transition point in the right upper quadrant near the anastomosis. No pneumatosis coli. No free air.. Peritoneum: No abnormal intraperitoneal fluid. No free air. Ventral Wall: No significant ventral hernia. Abdominal Nodes: No retroperitoneal or mesenteric adenopathy by size criteria. Vessels: Aorta and inferior vena cava are normal in size. PELVIS: Pelvic Organs: Unremarkable. Bladder: No bladder wall thickening, accounting for underdistention. Pelvic Nodes: No enlarged lymph nodes. Miscellaneous: No inguinal hernias are seen. Bones: No acute or suspicious osseous abnormality. IMPRESSION: Post colectomy changes with multiple dilated loops of small bowel predominantly in the right hemiabdomen with possible transition point in the right upper quadrant near the anastomosis masses. Findings are concerning for small bowel obstruction. Findings were discussed with ED provider Dr. Márquez at 5:36 p.m. on 01/18/2024. Dictated by: Gemini Reyes M.D. on 01/18/2024 at 17:27 Approved by: Gemini Reyes M.D. on 01/18/2024 at 17:38
[2024-01-18 15:27] LABS: Add Manual Diff / Slide Review NO; Basophils Absolute Auto 100 /uL (0-100); Basophils Percent Auto 0.7 % (0-2); Eosinophils Absolute Auto 0 /uL (0-450); Eosinophils Percent Auto 0.6 % (2-4); Hematocrit 33.1 % (36-46); Hemoglobin 11.2 g/dL (12.0-16.0); Lymphocytes Absolute Auto 600 /uL (1100-4500); Lymphocytes Percent Auto 7.8 % (25-40); Mean Corpuscular HGB Conc 33.9 % (30-36); Mean Corpuscular Hemoglobin 30.9 PG (26-34); Monocytes Absolute Auto 400 /uL (0-900); Monocytes Percent Auto 4.9 % (3-14); Neutrophils Absolute Auto 6300 /uL (1500-7000); Platelet Count 211 X10^3/uL (150-400); Red Blood Cell Count 3.64 X10^6/uL (4.0-5.2); Red Cell Distribution Width 13.6 % (11.6-14.8); White Blood Cell Count 7.4 X10^3/uL (4.5-11.0)
[2024-01-18] MEDS: PANTOPRAZOLE 40 MG VIAL IV (15:27)
[2024-01-18 15:30] LABS: Alanine Aminotransferase 13 IU/L (<35); Albumin 3.4 g/dL (3.5-5.0); Albumin Globulin Ratio 1.4 (1.0-2.8); Alkaline Phosphatase 54 U/L (38-126); Aspartate Aminotransferase 20 IU/L (14-36); BUN Creatinine Ratio 24.5 (6-22); Bilirubin Total 0.5 mg/dL (0.2-1.3); Blood Urea Nitrogen 12 mg/dL (7-17); Calcium 7.3 mg/dL (8.4-10.2); Carbon Dioxide 22 mmol/L (22-32); Chloride 111 mmol/L (98-107); Estimated Glomerular Filt Rate > 60 mL/min (>60); Globulin 2.5 g/dL (1.7-4.1); Glucose 110 mg/dL (80-110); HEMOLYSIS < 15 (0-50); Lipase 139 U/L (23-300); Potassium 2.9 mmol/L (3.4-5.1); Sodium 141 mmol/L (137-145); Total Protein 5.9 g/dL (6.3-8.2)
--- NOTE | 2024-01-18 15:40 | ED_ITS ---
HPI - Abdominal Pain General Chief Complaint: Abdominal Pain Stated Complaint: vomiting, severe abd pain Time Seen by Provider: 01/18/24 14:31 Source: patient Mode of arrival: Ambulatory History of Present Illness HPI narrative: Patient is a 73-year-old female history of atrial fibrillation on Eliquis, history of remote colon cancer in 2018 but had a colonoscopy last month and was clear very remote history of breast cancer presenting today with sudden onset of nausea vomiting. She reports that she was feeling in her normal state of health last night had breakfast this morning and then started vomiting unable to stop. She is dizzy easily. She has thrown up numerous times feeling cramping and pain in her abdomen. Small amounts had diarrhea. Her is not ill and feeling within normal limits. She says this is feeling like when she had cancer before she had a blockage or colon cancer was treated with surgery and no chemo and radiation. Related Data Home Medications Medication Instructions Recorded Confirmed acetaminophen 650 mg 650 mg PO Q8H PRN Pain 03/17/18 06/10/18 tablet,extended release apixaban 5 mg tablet 5 mg PO BID 03/17/18 06/10/18 ascorbic acid (vitamin C) 500 mg 1,000 mg PO QDAY 03/17/18 06/10/18 tablet cholecalciferol (vitamin D3) 50 4,000 unit PO DAILY 03/17/18 06/10/18 mcg (2,000 unit) tablet ferrous sulfate 325 mg (65 mg 325 mg PO BID 03/17/18 06/10/18 iron) tablet ondansetron HCl 4 mg tablet 4 mg PO Q6H PRN Nausea And Vomiting 03/17/18 06/10/18 calcium citrate 200 mg 1 tab PO DAILY 06/10/18 06/10/18 zlqbfeg-lucx-[id number] D3 200 [id number] tablet (ADVANCED Calcium) dexlansoprazole 60 mg 1 cap PO QPM 06/10/18 06/10/18 capsule,biphase delayed release diltiazem HCl 120 mg 1 cap PO DAILY 06/10/18 06/10/18 capsule,extended release 24 hr, controlled fidaxomicin 200 mg tablet 200 mg PO BID 06/10/18 06/10/18 vitamin B complex 1 cap PO DAILY 06/10/18 06/10/18 Previous Rx's Medication Instructions Recorded tramadol 50 mg tablet 100 mg (2 x 50 mg) PO QID PRN 04/18/18 Moderate Pain #60 tabs Allergies Allergy/AdvReac Type Severity Reaction Status Date / Time morphine Allergy Intermediate Nausea Verified 04/16/18 15:16 ceftriaxone [CEFTRIAXONE] AdvReac Severe INTERMITTENT Verified 04/16/18 15:16 FEVERS propoxyphene [From DARVON] AdvReac Intermediate nausea/vomi Verified 04/16/18 15:16 ting Patient History Medical History (Updated 01/18/24 @ 18:32 by Aviva Márquez DO) Septic shock Infection of total right knee replacement Septic arthritis Osteoarthritis History of total right knee replacement Anemia Surgical History Status post revision of total replacement of right knee Hx of total knee arthroplasty Social History household members: spouse and family Smoking Status: Never smoker alcohol intake: current Smoking Status: Never smoker alcohol intake frequency: a few times a month Substance Use Type: does not use Exam Initial Vital Signs Initial Vital Signs: Vital Signs Temperature 97.7 F 01/18/24 14:20 Pulse Rate 80 01/18/24 14:20 Respiratory Rate 16 01/18/24 14:20 Blood Pressure 173/82 H 01/18/24 14:20 Pulse Oximetry 97 01/18/24 14:20 Oxygen Delivery Method Room Air 01/18/24 14:20 GENERAL: Thin alert 73-year-old female actively dry heaving HEENT: Head atraumatic,EOMI, pupils reactive, face symmetric, moist mucous membranes CARDIOVASCULAR: Regular rate and rhythm without murmurs, rubs or gallops. RESPIRATORY: Breath sounds equal bilaterally, no wheezes rales or rhonchi. ABDOMEN: Soft, diffuse tenderness no obvious distention EXTREMITIES: Normal range of motion, no clubbing or edema. Neurovascularly intact NEUROLOGICAL: Alert and oriented x4.Normal gait and speech. SKIN: Warm, dry, no laceration, no petechiae, no rashes or lesions. Course Orders Ordered: ED Orders 01/18/24 14:28 EKG-12 Lead Stat 01/18/24 15:10 Complete Blood Count AUTO DIFF Stat Comprehensive Metabolic Panel Stat Lipase Stat 01/18/24 15:19 CT abdomen pelvis w con Stat POTASSIUM CHLORIDE IN WATER (Potassium Cl 10 Meq/100 Ml Janessa) 10 meq in 100 mls @ 100 mls/hr IV Q1H GAVI Stop: 01/18/24 17:59 Last Admin: 01/18/24 17:27 Dose: 100 mls/hr Documented By: Infusion: 01/18/24 17:25 Dose: Infused Documented By: Admin: 01/18/24 16:16 Dose: 100 mls/hr Documented By: SB Ondansetron HCl (Ondansetron 4 Mg/2 Ml Inj) 4 mg IV NOW PRN PRN Reason: Nausea And Vomiting Ondansetron HCl (Ondansetron 4 Mg Odt) 4 mg PO NOW PRN PRN Reason: Nausea And Vomiting Last Admin: 01/18/24 14:33 Dose: 4 mg Documented By: MIRTA Discontinued Medications Sodium Chloride (Normal Saline 0.9%) 1,000 mls @ 1,000 mls/hr IV BOLUS ONE Stop: 01/18/24 15:51 Last Infusion: 01/18/24 16:16 Dose: Infused Documented By: Infusion: 01/18/24 15:43 Dose: 1,000 mls/hr Documented By: Infusion: 01/18/24 15:33 Dose: 0 mls/hr Documented By: Admin: 01/18/24 15:01 Dose: 1,000 mls/hr Documented By: SB Sodium Chloride (Normal Saline 0.9%) 1,000 mls @ 1,000 mls/hr IV BOLUS ONE Stop: 01/18/24 16:56 Last Admin: 01/18/24 16:16 Dose: 1,000 mls/hr Documented By: MIRTA Morphine Sulfate (Morphine 2 Mg/Ml Inj) 2 mg IV NOW ONE Stop: 01/18/24 15:58 Last Admin: 01/18/24 16:08 Dose: 2 mg Documented By: SB Pantoprazole Sodium (Pantoprazole 40 Mg Vial) 40 mg IV NOW ONE Stop: 01/18/24 15:20 Last Admin: 01/18/24 15:27 Dose: 40 mg Documented By: SB Prochlorperazine (Prochlorperazine 10 Mg/2 Ml Vial) 10 mg IV NOW ONE Stop: 01/18/24 15:58 Last Admin: 01/18/24 16:08 Dose: 10 mg Documented By: MIRTA Vital Signs Vital signs: Vital Signs - 8 hr 01/18/24 14:20 01/18/24 14:49 01/18/24 14:50 Temperature 97.7 F Pulse Rate 80 84 Respiratory Rate 16 Blood Pressure 173/82 H 167/81 H Pulse Oximetry 97 99 Oxygen Delivery Method Room Air 01/18/24 14:50 01/18/24 14:51 01/18/24 14:51 Temperature Pulse Rate 84 81 Respiratory Rate 30 H 28 H Blood Pressure 160/76 H Pulse Oximetry 99 99 Oxygen Delivery Method 01/18/24 14:57 01/18/24 15:00 01/18/24 15:00 Temperature 99.6 F Pulse Rate 83 Respiratory Rate Blood Pressure 149/77 H Pulse Oximetry 99 Oxygen Delivery Method 01/18/24 15:44 01/18/24 15:45 01/18/24 15:45 Temperature Pulse Rate 90 88 Respiratory Rate 24 Blood Pressure 176/81 H Pulse Oximetry 99 100 Oxygen Delivery Method 01/18/24 16:05 01/18/24 16:06 01/18/24 16:06 Temperature Pulse Rate 95 H 92 H Respiratory Rate 31 H Blood Pressure 169/87 H Pulse Oximetry 100 Oxygen Delivery Method 01/18/24 16:08 01/18/24 16:30 01/18/24 16:30 Temperature Pulse Rate 91 H 86 Respiratory Rate 25 H Blood Pressure 169/87 H 152/71 H Pulse Oximetry 94 Oxygen Delivery Method Room Air 01/18/24 17:00 01/18/24 17:00 01/18/24 17:30 Temperature Pulse Rate 88 Respiratory Rate 20 Blood Pressure 154/75 H 153/72 H Pulse Oximetry 97 Oxygen Delivery Method Room Air 01/18/24 17:30 Temperature Pulse Rate 88 Respiratory Rate 21 Blood Pressure Pulse Oximetry 97 Oxygen Delivery Method Room Air MDM - Abdominal Pain Lab Data 01/18/24 15:10 01/18/24 15:10 Labs: Lab Results 01/18/24 Range/Units 15:10 WBC 7.4 (4.5-11.0) X10^3/uL RBC 3.64 L (4.0-5.2) X10^6/uL Hgb 11.2 L (12.0-16.0) g/dL Hct 33.1 L (36-46) % MCV 91.0 (80-100) fL MCH 30.9 (26-34) PG MCHC 33.9 (30-36) % RDW 13.6 (11.6-14.8) % Plt Count 211 (150-400) X10^3/uL Neut % (Auto) 86.0 H (50-75) % Lymph % (Auto) 7.8 L (25-40) % [place] % (Auto) 4.9 (3-14) % Eos % (Auto) 0.6 L (2-4) % Baso % (Auto) 0.7 (0-2) % Neut # (Auto) 6300 (6338-9423) /uL Lymph # (Auto) 600 L (5013-3284) /uL [place] # (Auto) 400 (0-900) /uL Eos # (Auto) 0 (0-450) /uL Baso # (Auto) 100 (0-100) /uL Sodium 141 (137-145) mmol/L Potassium 2.9 L (3.4-5.1) mmol/L Chloride 111 H (98-107) mmol/L Carbon Dioxide 22 (22-32) mmol/L BUN 12 (7-17) mg/dL Creatinine 0.49 L (0.52-1.04) mg/dL Estimated GFR > 60 (>60) mL/min BUN/Creatinine Ratio 24.5 H (6-22) Glucose 110 (80-110) mg/dL Calcium 7.3 L (8.4-10.2) mg/dL Total Bilirubin 0.5 (0.2-1.3) mg/dL AST 20 (14-36) IU/L ALT 13 (<35) IU/L Alkaline Phosphatase 54 (38-126) U/L Total Protein 5.9 L (6.3-8.2) g/dL Albumin 3.4 L (3.5-5.0) g/dL Globulin 2.5 (1.7-4.1) g/dL Albumin/Globulin Ratio 1.4 (1.0-2.8) Lipase 139 (23-300) U/L Point of care testing: Urine Dip Bedside Urine Glucose Negative Bedside Urine Bilirubin - Negative Bedside Urine Ketone + 15 Urine Specific [place] 1.010 Bedside Urine Occult Blood - Negative Bedside Urine pH 7.5 Bedside Urine Protein - Negative Bedside Urine Urobilinogen - Negative Bedside Urine Nitrite - Negative Bedside Urine Leukocytes - Negative Esterase Imaging Data CT scan - abdomen/pelvis: Radiologist's Impression: PROCEDURE: CT ABDOMEN PELVIS W CON INDICATIONS: vomiting hx colon cancer TECHNIQUE: After the administration of intravenous contrast, axial sections acquired from the lung bases to the pubic symphysis. Coronal and sagittal reformats were performed. For radiation dose reduction, the following was used: automated exposure control, adjustment of mA and/or kV according to patient size. COMPARISON: [facility], CT, CT ABDOMEN PELVIS W CON, 06/10/2018, 9:20. FINDINGS: Image quality: Diagnostic. Lower Chest: No significant findings. ABDOMEN: Liver: No solid mass. Gallbladder: No radiopaque gallstones or wall thickening. Biliary ducts: No biliary dilation. Pancreas: No ductal dilation. Spleen: Size is within normal limits. Adrenal Glands: No adrenal nodules. Kidneys and Ureters: No hydronephrosis. No solid mass. No complex renal cystic lesion which requires follow up. Stomach and Bowel: Status post colectomy with anastomosis seen in the right mid abdomen. There are multiple loops of small bowel predominantly in the right lower abdomen with possible transition point in the right upper quadrant near the anastomosis. No pneumatosis coli. No free air.. Peritoneum: No abnormal intraperitoneal fluid. No free air. Ventral Wall: No significant ventral hernia. Abdominal Nodes: No retroperitoneal or mesenteric adenopathy by size criteria. Vessels: Aorta and inferior vena cava are normal in size. PELVIS: Pelvic Organs: Unremarkable. Bladder: No bladder wall thickening, accounting for underdistention. Pelvic Nodes: No enlarged lymph nodes. Miscellaneous: No inguinal hernias are seen. Bones: No acute or suspicious osseous abnormality. IMPRESSION: Post colectomy changes with multiple dilated loops of small bowel predominantly in the right hemiabdomen with possible transition point in the right upper quadrant near the anastomosis masses. Findings are concerning for small bowel obstruction. Findings were discussed with ED provider Dr. Márquez at 5:36 p.m. on 01/18/2024. Dictated by: Gemini Reyes M.D. on 01/18/2024 at 17:27 ECG Data Interpretation: Significant artifact noted unreadable MDM Narrative Medical decision making narrative: Patient is 73-year-old female history of colon cancer with colectomy remote history of breast cancer presenting today with sudden onset of nausea vomiting. She is having significant abdominal cramping as well. Blood work has been reviewed she is found to be hypokalemic with a potassium of 2.9 no evidence of TAE CT reviewed shows small bowel obstruction with transition point 1800 Dr. Copeland updated on patient's symptoms test results recommends admission to medicine Dr. Baker updated on patient's symptoms test results and accepts patient Patient has been reassessed after morphine Zofran and Compazine. She is overall feeling a lot better she reports that the pain is starting to come back after the morphine. At this time without active vomiting or significant nausea Dr. Copeland and I agree to hold off on NG but she may require it later Discharge Plan Departure Patient Disposition: Admitted as Observation Clinical Impression: SBO (small bowel obstruction) Prescriptions: No Action ondansetron HCl 4 mg Tablet 4 mg PO Q6H PRN (Reason: Nausea And Vomiting) acetaminophen 650 mg Tablet Extended Release 650 mg PO Q8H PRN (Reason: Pain) ascorbic acid (vitamin C) 500 mg Tablet 1,000 mg PO QDAY ferrous sulfate 325 mg (65 mg iron) Tablet 325 mg PO BID cholecalciferol (vitamin D3) 2,000 unit Tablet 4,000 unit PO DAILY apixaban 5 mg Tablet 5 mg PO BID tramadol 50 mg Tablet 100 mg PO QID PRN (Reason: Moderate Pain) Qty: 60 0RF dexlansoprazole [Dexilant] 60 mg capsule,biphase delayed releas 1 cap PO QPM Patient Comments: take 1 capsule by mouth 30 MINUTES BEFORE DINNER diltiazem HCl [DILT-XR] 120 mg capsule,ext.rel 24h degradable 1 cap PO DAILY vitamin B complex Capsule 1 cap PO DAILY fidaxomicin [Dificid] 200 mg tablet 200 mg PO BID Patient Comments: patient states took this am but vomited after [id number]-[id number]-silicon [ADVANCED Calcium] 200 mg calcium- 200 unit Tablet 1 tab PO DAILY Referrals: Sridhar Sawyer MD [Primary Care Provider] -
[2024-01-18] MEDS: MORPHINE 2 MG/ML INJ IV (16:08)
[2024-01-18] MEDS: PROCHLORPERAZINE 10 MG/2 ML VIAL IV (16:08)
[2024-01-18] MEDS: POTASSIUM CHLORIDE IN WATER 10 MEQ/100 ML PIGGYBACK 100 MEQ IV ×2 (16:16→17:27)
--- NOTE | 2024-01-18 16:23 | PC.NURSE ---
Potassium chloride medication verified by second RN Jaylyn.
--- NOTE | 2024-01-18 17:06 | PC.NURSE ---
1605: Verified with provider Willi that it is OK to give IV morphine due to allergy listed. Provider OKAYED. Pt aware of medication and OK to give as well.
[2024-01-18] MEDS: MORPHINE 4 MG/ML INJ IV (18:58)
[2024-01-18] MEDS: SODIUM CHLORIDE 0.45% 1,000 ML 100 ML IV (20:32)
[2024-01-19] VITALS (7 sets, daily range): BP systolic 121–160; BP diastolic 67–85; PULSE 81–100; RESP 14–18; TEMP 36.8–37.6; O2SAT 92–98
[2024-01-19] MEDS: ONDANSETRON 4 MG/2 ML INJ IV ×5 (03:41→23:44)
[2024-01-19] MEDS: HYDROMORPHONE 0.5 MG INJ IV ×2 (03:46→08:01)
[2024-01-19 05:21] LABS: Add Manual Diff / Slide Review NO; Basophils Absolute Auto 100 /uL (0-100); Basophils Percent Auto 0.7 % (0-2); Eosinophils Absolute Auto 0 /uL (0-450); Eosinophils Percent Auto 0.1 % (2-4); Hematocrit 34.7 % (36-46); Hemoglobin 11.7 g/dL (12.0-16.0); Lymphocytes Absolute Auto 700 /uL (1100-4500); Lymphocytes Percent Auto 8.7 % (25-40); Mean Corpuscular HGB Conc 33.7 % (30-36); Mean Corpuscular Hemoglobin 30.6 PG (26-34); Mean Corpuscular Volume 90.8 fL (80-100); Monocytes Absolute Auto 800 /uL (0-900); Monocytes Percent Auto 9.7 % (3-14); Neutrophils Absolute Auto 6900 /uL (1500-7000); Neutrophils Percent Auto 80.8 % (50-75); Platelet Count 238 X10^3/uL (150-400); Red Blood Cell Count 3.82 X10^6/uL (4.0-5.2); Red Cell Distribution Width 13.7 % (11.6-14.8); White Blood Cell Count 8.6 X10^3/uL (4.5-11.0)
[2024-01-19 05:34] LABS: Alanine Aminotransferase 17 IU/L (<35); Albumin 3.7 g/dL (3.5-5.0); Albumin Globulin Ratio 1.4 (1.0-2.8); Alkaline Phosphatase 55 U/L (38-126); Aspartate Aminotransferase 27 IU/L (14-36); BUN Creatinine Ratio 16.7 (6-22); Bilirubin Total 0.6 mg/dL (0.2-1.3); Blood Urea Nitrogen 9 mg/dL (7-17); Calcium 8.1 mg/dL (8.4-10.2); Carbon Dioxide 24 mmol/L (22-32); Chloride 103 mmol/L (98-107); Estimated Glomerular Filt Rate > 60 mL/min (>60); Globulin 2.6 g/dL (1.7-4.1); Glucose 110 mg/dL (80-110); HEMOLYSIS < 15 (0-50); Potassium 3.6 mmol/L (3.4-5.1); Sodium 135 mmol/L (137-145); Total Protein 6.3 g/dL (6.3-8.2)
[2024-01-19] MEDS: SODIUM CHLORIDE 0.45% 1,000 ML 100 ML IV ×2 (06:37→15:45)
--- NOTE | 2024-01-19 07:00 | DI.RAD.S_ITS ---
PROCEDURE: XR ABDOMEN MIN 2V INDICATIONS: SBO TECHNIQUE: 2 views of the abdomen were acquired. COMPARISON: [facility], CT, CT ABDOMEN PELVIS W CON, 01/18/2024, 15:30. FINDINGS: Surgical changes and devices: Surgical clips in the right axilla. A few surgical clips in the right lobe lower abdomen. Cyst Bowel: No pneumoperitoneum. Multiple dilated loops of small bowel in the left hemiabdomen and pelvis measuring up to 3.4 cm. Soft tissues: No masses; visualized solid organ contours appear normal in size. No suspicious abdominal calcifications. Contrast within the bladder secondary to recent CT. Visualized lungs are clear. Normal mediastinal contour. Normal heart size. For Bones: No suspicious bony abnormalities. Multilevel degenerative changes of the spine. IMPRESSION: Multiple dilated loops of small bowel measuring up to 3.4 cm. Differential includes ileus versus small-bowel obstruction. Dictated by: Rochelle Rodriguez M.D. on 01/19/2024 at 8:51 Approved by: Rochelle Rodriguez M.D. on 01/19/2024 at 8:54
[2024-01-19] MEDS: HYDROMORPHONE 0.5 MG INJ 1 MG IV ×5 (08:32→19:19)
--- NOTE | 2024-01-19 08:44 | P.HP_ITS ---
History of Present Illness History of Present Illness Date Patient Seen: 01/19/24 Time Patient Seen: 08:44 Chief complaint: vomiting, severe abd pain Narrative: 73 F with PMH of septic arthritis, colon CA s/p partial colectomy, remote breast CA, afib on xarelto who presented with sudden onset abdominal pain, nausea, vomiting now starting 2 nights ago. She was admitted overnight, orders placed by tele-hospitalist with a bowel obstruction, with possible transition point on CT imaging. General surgery consulted but has not evaluated patient as of this time. She has continued abdominal pain this morning, with wretching and continuous nausea. Required dose increase in dilaudid. Discussed risks and benefits of NG tube insertion, patient was agreeable and NG tube ordered. [facility] Medical History Septic shock Infection of total right knee replacement Septic arthritis Osteoarthritis History of total right knee replacement Anemia Surgical History Status post revision of total replacement of right knee Hx of total knee arthroplasty Social History household members: spouse and family Smoking Status: Never smoker alcohol intake: current Meds Home Medications and Allergies Home Medications Medication Instructions Recorded Confirmed Type acetaminophen 650 mg 650 mg PO Q8H PRN Pain 03/17/18 01/18/24 History tablet,extended release apixaban 5 mg tablet 5 mg PO BID 03/17/18 01/18/24 History ascorbic acid (vitamin C) 500 mg 1,000 mg PO QDAY 03/17/18 01/18/24 History tablet cholecalciferol (vitamin D3) 50 4,000 unit PO DAILY 03/17/18 01/18/24 History mcg (2,000 unit) tablet ferrous sulfate 325 mg (65 mg 325 mg PO BID 03/17/18 01/18/24 History iron) tablet ondansetron HCl 4 mg tablet 4 mg PO Q6H PRN Nausea And Vomiting 03/17/18 01/18/24 History calcium citrate 200 mg 1 tab PO DAILY 06/10/18 01/18/24 History smferjj-mein-fnu D3 200 dfio-S6-boibzob tablet (ADVANCED Calcium) dexlansoprazole 60 mg 1 cap PO QPM 06/10/18 01/18/24 History capsule,biphase delayed release diltiazem HCl 120 mg 1 cap PO DAILY 06/10/18 01/18/24 History capsule,extended release 24 hr, controlled fidaxomicin 200 mg tablet 200 mg PO BID 06/10/18 06/10/18 History vitamin B complex 1 cap PO DAILY 06/10/18 01/18/24 History Allergies Allergy/AdvReac Type Severity Reaction Status Date / Time morphine Allergy Intermediate Nausea Verified 04/16/18 15:16 ceftriaxone [CEFTRIAXONE] AdvReac Severe INTERMITTENT Verified 04/16/18 15:16 FEVERS propoxyphene [From DARVON] AdvReac Intermediate nausea/vomi Verified 04/16/18 15:16 ting Review of Systems Review of Systems Narrative: All other systems reviewed with the patient and are negative unless otherwise stated. Exam Vital Signs (past 8 hours): - 01/19/24 04:00 Temperature 99.1 F Pulse Rate 100 H Respiratory Rate 16 Blood Pressure 145/85 H Pulse Oximetry 96 Oxygen Delivery Method Room Air Narrative Exam Narrative: General:? Patient is well developed and well nourished, appears uncomfortable and mildly acutely ill. HEENT:? Normocephalic, atraumatic, extraocular muscles intact, oral pharynx is clear and mucous membranes are moist. Neck: supple and symmetric, trachea is midline, no cervical adenopathy. Negative for JVD Chest:? Normal AP diameter and contour without kyphoscoliosis, no tachypnea, equal chest rise bilaterally. Lungs:? CTA b/l no wheezing rhonchi or rales. Cardio:?RRR no m/r/g. Abdomen: soft, with mild suprapubic distension, and diffuse mild tenderness. Musculoskeletal:? Muscle strength and tone are equal within normal limits, no deformity. Extremities: No edema or joint effusions. No cyanosis or clubbing. Skin:? Pale,? Warm to touch,dry and intact without rashes, ulcerations or petechiae.? Neuro:? Alert and orientated x3,? sensation to touch intact in all extremities, no gross deficits noted of cranial nerves. Psych:? Patient has a well-kept appearance, appropriate affect, mental status attitude thought context and judgment are appropriate for age. Objective Labs 01/19/24 05:00 01/19/24 05:00 Labs: Laboratory Results - last 24 hr 01/18/24 01/19/24 15:10 05:00 WBC 7.4 8.6 RBC 3.64 L 3.82 L Hgb 11.2 L 11.7 L Hct 33.1 L 34.7 L MCV 91.0 90.8 MCH 30.9 30.6 MCHC 33.9 33.7 RDW 13.6 13.7 Plt Count 211 238 Neut % (Auto) 86.0 H 80.8 H Lymph % (Auto) 7.8 L 8.7 L [place] % (Auto) 4.9 9.7 Eos % (Auto) 0.6 L 0.1 L Baso % (Auto) 0.7 0.7 Neut # (Auto) 6300 6900 Lymph # (Auto) 600 L 700 L [place] # (Auto) 400 800 Eos # (Auto) 0 0 Baso # (Auto) 100 100 Sodium 141 135 L Potassium 2.9 L 3.6 Chloride 111 H 103 Carbon Dioxide 22 24 BUN 12 9 Creatinine 0.49 L 0.54 Estimated GFR > 60 > 60 BUN/Creatinine Ratio 24.5 H 16.7 Glucose 110 110 Calcium 7.3 L 8.1 L Total Bilirubin 0.5 0.6 AST 20 27 ALT 13 17 Alkaline Phosphatase 54 55 Total Protein 5.9 L 6.3 Albumin 3.4 L 3.7 Globulin 2.5 2.6 Albumin/Globulin Ratio 1.4 1.4 Lipase 139 Assessment & Plan Assessment & Plan narrative: 1. SBO secondary to adhesions - NG tube ordered now - continue IV fluids, NPO status - general surgery consultation, will discuss with provider after their evaluation today. 2. paroxysmal afib on anticoagulation - hold home eliquis for now - on home diltiazem for rate control, will hold for now, can replace with IV prn dosing for rate control. 3. history of colon cancer 4. chronic anemia - history of anemia, labs slightly improved but likely dehdyration. Hg 11.7 this AM. Continue to follow. 5. Hypokalemia, acute, present on admission - due to GI losses, continue IV repletion. Improved to 3.6 this morning. Code: Full, surrogate is patient's spouse DVT: hold anticoagulation, okay for SCDs I have utilized all available immediate resources to obtain, update, or review the patient's current medications. Dispo: Inpatient, her stay is expected to exceed two midnights. Quality VTE Deep Vein Thrombosis/Pulmonary Embolism Present on Admission: No
--- NOTE | 2024-01-19 12:41 | DI.RAD.S_ITS ---
PROCEDURE: XR ABDOMEN 1V INDICATIONS: s/p NG Tube TECHNIQUE: One view of the abdomen acquired. COMPARISON: [facility], CR, XR ABDOMEN MIN 2V, 01/19/2024, 7:20. [facility], CT, CT ABDOMEN PELVIS W CON, 01/18/2024, 15:30. FINDINGS: Surgical changes and devices: There is a nasogastric tube with the tip projecting to the distal esophagus. Bowel: Mild small bowel dilation. Soft tissues: No suspicious abdominal calcifications. Visualized solid organ contours appear normal in size. Bones: No suspicious bony lesions. Scoliosis and degenerative changes in lumbar spine. IMPRESSION: 1. Nasogastric tube tip in the distal esophagus. Dictated by: Chuckie Deluna M.D. on 01/19/2024 at 13:21 Approved by: Chuckie Deluna M.D. on 01/19/2024 at 13:22
--- NOTE | 2024-01-19 12:47 | PM.CN ---
History of Present Illness Consult details Date Patient Seen: 01/19/24 Time Patient Seen: 12:47 Chief complaint: vomiting, severe abd pain Reason for consult: SBO Requesting provider: Brian Pierre Narrative: Admitted for bowel obstruction. H/o breast and colon cancer Meds Home Medications and Allergies Home Medications Medication Instructions Recorded Confirmed Type acetaminophen 650 mg 650 mg PO Q8H PRN Pain 03/17/18 01/18/24 History tablet,extended release apixaban 5 mg tablet 5 mg PO BID 03/17/18 01/18/24 History ascorbic acid (vitamin C) 500 mg 1,000 mg PO QDAY 03/17/18 01/18/24 History tablet cholecalciferol (vitamin D3) 50 4,000 unit PO DAILY 03/17/18 01/18/24 History mcg (2,000 unit) tablet ferrous sulfate 325 mg (65 mg 325 mg PO BID 03/17/18 01/18/24 History iron) tablet ondansetron HCl 4 mg tablet 4 mg PO Q6H PRN Nausea And Vomiting 03/17/18 01/18/24 History calcium citrate 200 mg 1 tab PO DAILY 06/10/18 01/18/24 History vkvedqg-dvza-srw D3 200 ulox-M3-aidjbms tablet (ADVANCED Calcium) dexlansoprazole 60 mg 1 cap PO QPM 06/10/18 01/18/24 History capsule,biphase delayed release diltiazem HCl 120 mg 1 cap PO DAILY 06/10/18 01/18/24 History capsule,extended release 24 hr, controlled fidaxomicin 200 mg tablet 200 mg PO BID 06/10/18 06/10/18 History vitamin B complex 1 cap PO DAILY 06/10/18 01/18/24 History Allergies Allergy/AdvReac Type Severity Reaction Status Date / Time morphine Allergy Intermediate Nausea Verified 04/16/18 15:16 ceftriaxone [CEFTRIAXONE] AdvReac Severe INTERMITTENT Verified 04/16/18 15:16 FEVERS propoxyphene [From DARVON] AdvReac Intermediate nausea/vomi Verified 04/16/18 15:16 ting Review of Systems Review of Systems ROS: Yes All systems reviewed with the patient and are negative except as otherwise documented Exam Vital Signs (past 8 hours): - 01/19/24 08:54 01/19/24 12:00 Temperature 98.3 F 99.6 F Pulse Rate 87 88 Respiratory Rate 16 18 Blood Pressure 160/85 H 154/83 H Pulse Oximetry 95 98 Oxygen Flow Rate 0 0 Oxygen Delivery Method Room Air Oxygen Flow Rate 0 Const General: frail appearing, ill appearing and lethargic Nutritional Appearance: thin HENMT Head: normocephalic and atraumatic Eyes Sclera: sclerae normal Neck Neck: trachea midline and No JVD Resp Effort & Inspection: normal respiratory effort and able to speak in complete sentences Cardio Rate: regular rate Rhythm: abnormal rhythm GI Inspection: distended Palpation: firm, No guarding and tender Other: mild tenderness to palpation Skin General: No turgor normal and atrophy Neuro General: patient alert, patient awake and patient oriented x3 Cognition: normal cognition Psych Mental Status: mental status grossly normal Judgment: judgment good Objective Labs 01/19/24 05:00 01/19/24 05:00 Labs: Laboratory Results - last 24 hr 01/18/24 01/19/24 15:10 05:00 WBC 7.4 8.6 RBC 3.64 L 3.82 L Hgb 11.2 L 11.7 L Hct 33.1 L 34.7 L MCV 91.0 90.8 MCH 30.9 30.6 MCHC 33.9 33.7 RDW 13.6 13.7 Plt Count 211 238 Neut % (Auto) 86.0 H 80.8 H Lymph % (Auto) 7.8 L 8.7 L [place] % (Auto) 4.9 9.7 Eos % (Auto) 0.6 L 0.1 L Baso % (Auto) 0.7 0.7 Neut # (Auto) 6300 6900 Lymph # (Auto) 600 L 700 L [place] # (Auto) 400 800 Eos # (Auto) 0 0 Baso # (Auto) 100 100 Sodium 141 135 L Potassium 2.9 L 3.6 Chloride 111 H 103 Carbon Dioxide 22 24 BUN 12 9 Creatinine 0.49 L 0.54 Estimated GFR > 60 > 60 BUN/Creatinine Ratio 24.5 H 16.7 Glucose 110 110 Calcium 7.3 L 8.1 L Total Bilirubin 0.5 0.6 AST 20 27 ALT 13 17 Alkaline Phosphatase 54 55 Total Protein 5.9 L 6.3 Albumin 3.4 L 3.7 Globulin 2.5 2.6 Albumin/Globulin Ratio 1.4 1.4 Lipase 139 [facility] Medical History Septic shock Infection of total right knee replacement Septic arthritis Osteoarthritis History of total right knee replacement Anemia Surgical History Status post revision of total replacement of right knee Hx of total knee arthroplasty Social History household members: spouse and family Tobacco & Substance Use Smoking Status: Never smoker alcohol intake: current Assessment & Plan Assessment & Plan narrative: Small bowel obstruction with h/o partial colectomy for colon cancer. H/o breast cancer. Anemic on chronic anticoagulation. Plan: Bowel rest with NGT. If NGT volume is appropriate and SBO not resolved tomorrow... Gastrografin challenge. Time Spent With Patient Time with patient: less than 30 minutes
--- NOTE | 2024-01-19 16:07 | CM.DANOTE ---
DCP assessment note Pt is a 73yo F here following SBO. Pt has a PMH of colon and breast cancer. PCP Sridhar Sawyer Payer Medicare and [facility] [facility] BANK RECONCILIATOR reviewed EMR. Per surgeon note, bowel rest with NGT. If SBO not resolved tomorrow, gastrografin challenge. BANK RECONCILIATOR entered room and introduced self and role. Pt resting in bed, spouse at bedside. Pt reports being indept/driving at baseline. No DME. Up and moving to bathroom since stay. Pt lives with spouse/granddtr and her in [place]. Pt denies any CM needs at this time. Plan: home when medically stable. Spouse and family to assist. No identified CM needs. CM team will follow as needed. KEN Carlisle Discharge Planning/Care Management CM Discharge Assessment Start: 01/19/24 16:04 Freq: Status: Active Protocol: Document 01/19/24 16:04 (Rec: 01/19/24 16:07 [id number]) Discharge Planning Assessment Assigned Sewing Machine Operator KEN Quiroz DPOA/Assigned Designee Name dee dee Day Contact Information [phone] Advance Directives? No Advance Directives on File No History Provided By Patient,Significant Other Prior Living Arrangements House Household Members spouse,family Type of transporation used prior to Drives own vehicle admit Comment drives short distance, family for longer ones Independent with ADL's Yes Is patient alert and oriented? Yes Barriers to Discharge No Discharge Plan Home Referrals Initiated None needed Whiteboard Updated in Patient Room with Yes name and ext. # of Sewing Machine Operator Review Status In Process Next Review Type Continued Stay Review
--- NOTE | 2024-01-19 18:17 | DI.RAD.S_ITS ---
PROCEDURE: XR CHEST 1V INDICATIONS: NG Tube placement TECHNIQUE: One view of the chest was acquired. COMPARISON: [facility], CHEST 1 VIEW, 01/26/2018, 17:52. [facility], , CHEST FOR PICC PLACEMENT, 01/10/2018, 14:38. FINDINGS: Surgical changes and devices: NG tube with tip and side port projecting over the expected location of the stomach. Right chest wall surgical clips. Lungs and pleura: Lungs are clear. No pleural effusions or pneumothorax. Mediastinum: Mediastinal contours appear normal. Heart size is normal. Bones and chest wall: No suspicious bony lesions. Overlying soft tissues appear unremarkable. IMPRESSION: NG tube with tip and side port projecting over the expected location of the stomach. Dictated by: Mauri Costa M.D. on 01/19/2024 at 18:52 Approved by: Mauri Costa M.D. on 01/19/2024 at 18:54
[2024-01-19] MEDS: HYDROMORPHONE 1 MG INJ IV (23:35)
--- NOTE | 2024-01-20 | DI.RAD.S_ITS ---
PROCEDURE: XR GASTROGRAFIN CHALLENGE COMPARISON: [facility], CT, CT ABDOMEN PELVIS W CON, 01/18/2024, 15:30. [facility], CR, XR ABDOMEN 1V, 01/19/2024, 12:43. INDICATIONS: bowel obstruction FINDINGS: There is a nasogastric tube with the tip in the proximal stomach just beyond the GE junction. Oral contrast is seen in the distal esophagus , stomach and small intestine. There is gaseous distension of stomach and mild gaseous distension of small intestine which measures up to 3 cm. Oral contrast has reached to ileal loops at 4 hours after oral contrast administration. IMPRESSION: Oral contrast has reached ileol loops at 4 hours. A transitional point is not visualized on this exam. Recommend continue sequential imaging. Dictated by: Chuckie Deluna M.D. on 01/20/2024 at 18:25 Approved by: Chuckie Deluna M.D. on 01/20/2024 at 18:28
[2024-01-20 03:00] VITALS: BP 132/75; PULSE 77; RESP 18; TEMP 36.9; O2SAT 94
[2024-01-20] MEDS: ONDANSETRON 4 MG/2 ML INJ IV ×4 (03:18→13:45)
[2024-01-20] MEDS: HYDROMORPHONE 1 MG INJ IV ×5 (03:32→22:56)
--- NOTE | 2024-01-20 03:39 | DI.RAD.S_ITS ---
PROCEDURE: XR CHEST 1V INDICATIONS: NG Tube placement confirmation TECHNIQUE: One view of the chest was acquired. COMPARISON: [facility], CR, XR CHEST 1V, 01/19/2024, 18:37. FINDINGS: Surgical changes and devices: Nasogastric tube is present. Side port is immediately distal to the gastroesophageal junction. Lungs and pleura: Minimal appearance of right basilar coarsening. Mediastinum: Mediastinal contours appear normal. Heart size is normal. Bones and chest wall: No suspicious bony lesions. Overlying soft tissues appear unremarkable. IMPRESSION: Nasogastric tube with side port immediately distal to the gastroesophageal junction. Forward advancement of 2-3 cm would result in more optimal placement. Minimal right basilar coarsening. This could represent dependent change or developing atelectasis/pneumonia. Dictated by: Yvrose Luu M.D. on 01/20/2024 at 10:41 Approved by: Yvrose Luu M.D. on 01/20/2024 at 10:43
[2024-01-20 04:52] LABS: Add Manual Diff / Slide Review NO; Basophils Absolute Auto 0 /uL (0-100); Basophils Percent Auto 0.2 % (0-2); Eosinophils Absolute Auto 0 /uL (0-450); Hematocrit 37.8 % (36-46); Hemoglobin 12.8 g/dL (12.0-16.0); Lymphocytes Absolute Auto 700 /uL (1100-4500); Lymphocytes Percent Auto 10.2 % (25-40); Mean Corpuscular HGB Conc 33.8 % (30-36); Mean Corpuscular Hemoglobin 31.2 PG (26-34); Mean Corpuscular Volume 92.3 fL (80-100); Monocytes Absolute Auto 1100 /uL (0-900); Monocytes Percent Auto 15.5 % (3-14); Neutrophils Absolute Auto 5300 /uL (1500-7000); Neutrophils Percent Auto 74.1 % (50-75); Platelet Count 252 X10^3/uL (150-400); Red Cell Distribution Width 13.6 % (11.6-14.8); White Blood Cell Count 7.2 X10^3/uL (4.5-11.0)
[2024-01-20 04:58] LABS: Alanine Aminotransferase 14 IU/L (<35); Albumin 3.5 g/dL (3.5-5.0); Albumin Globulin Ratio 1.3 (1.0-2.8); Alkaline Phosphatase 56 U/L (38-126); Aspartate Aminotransferase 21 IU/L (14-36); BUN Creatinine Ratio 25.4 (6-22); Bilirubin Total 0.9 mg/dL (0.2-1.3); Blood Urea Nitrogen 15 mg/dL (7-17); Calcium 7.9 mg/dL (8.4-10.2); Carbon Dioxide 22 mmol/L (22-32); Chloride 99 mmol/L (98-107); Estimated Glomerular Filt Rate > 60 mL/min (>60); Globulin 2.7 g/dL (1.7-4.1); Glucose 131 mg/dL (80-110); HEMOLYSIS < 15 (0-50); Potassium 3.8 mmol/L (3.4-5.1); Sodium 131 mmol/L (137-145); Total Protein 6.2 g/dL (6.3-8.2)
[2024-01-20 08:20] VITALS: BP 142/76; PULSE 87; RESP 18; TEMP 36.9; O2SAT 95
[2024-01-20] MEDS: SODIUM CHLORIDE 0.45% 1,000 ML 100 ML IV ×2 (11:19→21:32)
[2024-01-20 12:00] VITALS: BP 149/76; PULSE 83; RESP 16; TEMP 36.8; O2SAT 95
[2024-01-20] MEDS: SCOPOLAMINE 1 PATCH TOP (12:21)
--- NOTE | 2024-01-20 12:30 | CM.DPNOTE ---
DCP Note COVER SEAMER reviewed EMR. Per hospitalist in morning rounds, pt NG tube accidentally came out. Trying it again today. No changes in SBO. POC still unfolding. No identified CM needs at this time.; Plan: home with spouse when medically stable. No identified CM needs. CM team will follow as needed. Guerita Alfaro, KEN
--- NOTE | 2024-01-20 14:42 | P.PN_ITS ---
Subjective Subjective Interval history: 73 F with an SBO. Had difficulties with NG placement yesterday, patient had removed first one. Replaced finally around 3 am with about 300 cc output when seen this AM. She felt a bit better, still no gas or bowel movement. Discussed with surgery, ordered for gastrograffin small bowel follow through. Exam Vital Signs (past 8 hours): - 01/20/24 08:20 01/20/24 12:00 Temperature 98.4 F 98.2 F Pulse Rate 87 83 Respiratory Rate 18 16 Blood Pressure 142/76 H 149/76 H Pulse Oximetry 95 95 Oxygen Flow Rate 0 0 Oxygen Delivery Method Room Air Oxygen Flow Rate 0 Narrative Exam Narrative: General:? Patient is well developed and well nourished, appears uncomfortable and mildly acutely ill. HEENT:? Normocephalic, atraumatic, extraocular muscles intact, oral pharynx is clear and mucous membranes are moist. NG tube in place. Neck: supple and symmetric, trachea is midline, no cervical adenopathy. Negative for JVD Chest:? Normal AP diameter and contour without kyphoscoliosis, no tachypnea, equal chest rise bilaterally. Lungs:? CTA b/l no wheezing rhonchi or rales. Cardio:?RRR no m/r/g. Abdomen: soft, mild distension and improved tenderness today. Musculoskeletal:? Muscle strength and tone are equal within normal limits, no deformity. Extremities: No edema or joint effusions. No cyanosis or clubbing. Skin:? Pale,? Warm to touch,dry and intact without rashes, ulcerations or petechiae.? Neuro:? Alert and orientated x3,? sensation to touch intact in all extremities, no gross deficits noted of cranial nerves. Psych:? Patient has a well-kept appearance, appropriate affect, mental status attitude thought context and judgment are appropriate for age. Objective Labs 01/20/24 04:27 01/20/24 04:27 Labs: Laboratory Results - last 24 hr 01/20/24 04:27 WBC 7.2 RBC 4.10 Hgb 12.8 Hct 37.8 MCV 92.3 MCH 31.2 MCHC 33.8 RDW 13.6 Plt Count 252 Neut % (Auto) 74.1 Lymph % (Auto) 10.2 L [place] % (Auto) 15.5 H Eos % (Auto) 0.0 L Baso % (Auto) 0.2 Neut # (Auto) 5300 Lymph # (Auto) 700 L [place] # (Auto) 1100 H Eos # (Auto) 0 Baso # (Auto) 0 Sodium 131 L Potassium 3.8 Chloride 99 Carbon Dioxide 22 BUN 15 Creatinine 0.59 Estimated GFR > 60 BUN/Creatinine Ratio 25.4 H Glucose 131 H Calcium 7.9 L Total Bilirubin 0.9 AST 21 ALT 14 Alkaline Phosphatase 56 Total Protein 6.2 L Albumin 3.5 Globulin 2.7 Albumin/Globulin Ratio 1.3 PFSH Medical History Septic shock Infection of total right knee replacement Septic arthritis Osteoarthritis History of total right knee replacement Anemia Surgical History Status post revision of total replacement of right knee Hx of total knee arthroplasty Social History household members: spouse and family Smoking Status: Never smoker alcohol intake: current Assessment & Plan Assessment & Plan narrative: 1. SBO secondary to adhesions - continue NG tube, replaced early AM of 01/20 - continue IV fluids, NPO status - general surgery consultation, discussed with surgery and they have recommended small bowel follow through, ordered this afternoon. 2. paroxysmal afib on anticoagulation - hold home eliquis for now - on home diltiazem for rate control, will hold for now, can replace with IV prn dosing for rate control. 3. history of colon cancer 4. chronic anemia - history of anemia, labs slightly improved but likely dehdyration. Hg uptrending at 12.8. Continue to follow but no signs of active bleeding. 5. Hypokalemia, acute, present on admission - due to GI losses, continue IV repletion. Improved to 3.8 this morning. Code: Full, surrogate is patient's spouse DVT: hold anticoagulation, okay for SCDs I have utilized all available immediate resources to obtain, update, or review the patient's current medications. Dispo: Inpatient, her stay is expected to exceed two midnights. Quality VTE Deep Vein Thrombosis/Pulmonary Embolism Present on Admission: No
[2024-01-20] MEDS: METOCLOPRAMIDE 10 MG/2 ML INJ 5 MG IV (15:22)
[2024-01-20 16:00] VITALS: BP 150/88; PULSE 96; RESP 16; TEMP 37.2; O2SAT 94
--- NOTE | 2024-01-20 16:58 | PM.PN.1 ---
Subjective Subjective Date Patient Seen: 01/20/24 Interval history: Krista feels somewhat worse today. Feels more abdominal pressure since getting the Gastrografin. She has had no flatus. Exam Vital Signs (past 8 hours): - 01/20/24 12:00 01/20/24 16:00 Temperature 98.2 F 99.0 F Pulse Rate 83 96 H Respiratory Rate 16 16 Blood Pressure 149/76 H 150/88 H Pulse Oximetry 95 94 Oxygen Flow Rate 0 0 Oxygen Delivery Method Room Air Oxygen Flow Rate 0 Narrative Exam Narrative: Distended without peritonitis There is a midline scar from her colon surgery Objective Labs 01/20/24 04:27 01/20/24 04:27 Labs: Laboratory Results - last 24 hr 01/20/24 04:27 WBC 7.2 RBC 4.10 Hgb 12.8 Hct 37.8 MCV 92.3 MCH 31.2 MCHC 33.8 RDW 13.6 Plt Count 252 Neut % (Auto) 74.1 Lymph % (Auto) 10.2 L [place] % (Auto) 15.5 H Eos % (Auto) 0.0 L Baso % (Auto) 0.2 Neut # (Auto) 5300 Lymph # (Auto) 700 L [place] # (Auto) 1100 H Eos # (Auto) 0 Baso # (Auto) 0 Sodium 131 L Potassium 3.8 Chloride 99 Carbon Dioxide 22 BUN 15 Creatinine 0.59 Estimated GFR > 60 BUN/Creatinine Ratio 25.4 H Glucose 131 H Calcium 7.9 L Total Bilirubin 0.9 AST 21 ALT 14 Alkaline Phosphatase 56 Total Protein 6.2 L Albumin 3.5 Globulin 2.7 Albumin/Globulin Ratio 1.3 PFSH Medical History Septic shock Infection of total right knee replacement Septic arthritis Osteoarthritis History of total right knee replacement Anemia Surgical History Status post revision of total replacement of right knee Hx of total knee arthroplasty Social History household members: spouse and family Smoking Status: Never smoker alcohol intake: current Assessment & Plan Assessment and plan (1) SBO (small bowel obstruction): Status: Acute Plan Await Gastrografin challenge. If no progression of the colon by morning she will most likely need to go to the OR for an exploratory laparotomy. Quality VTE Deep Vein Thrombosis/Pulmonary Embolism Present on Admission: No
[2024-01-20 20:00] VITALS: BP 121/66; PULSE 86; RESP 17; TEMP 36; O2SAT 94
[2024-01-21] VITALS (15 sets, daily range): BP systolic 114–153; BP diastolic 61–83; PULSE 78–94; RESP 10–81; TEMP 36.6–37.7; O2SAT 90–95; BMI 19.2
--- NOTE | 2024-01-21 | PATH_ITS ---
[facility] Accession Number: [id number] No. of containers..01 Tissue . 01 Material submitted: . colon - COLON AND SMALL BOWEL . 01 Diagnosis: COLON AND SMALL BOWEL, SEGMENTAL RESECTION: Segment of anastomotic ileocolon with ulcer, featuers of mucosal ischemia and serositis, consistent with volvulus. One benign mesenteric lymph node. Negative for granulomas, dysplasia or malignancy. Histologically viable margins of resection. MRV 01/27/2024 1355 Local . 01 Electronically signed: . Erasto Mccoy MD, PhD, Pathologist NPI- [id number] . 01 Gross description: . The specimen is received in formalin labeled with the patient's name, , and colon and small bowel, and consists of a small bowel (32.7 cm in length and 3.7 cm in diameter) and portion of colon (7.9 cm in length and up to 5.5 cm in diameter). An appendix is not identified. The serosal surfaces are red to brown and congested. Both ends are stapled (ileum - blue and colon - black). An abundant amount of attached mesenteric fat is noted. The mesenteric root is inked green. The segment of bowel is opened to reveal an abundant amount of brown fecal material. The ileal mucosa shows the usual ibarra-brown plicated folds with no polyps or lesions seen. The colonic mucosa is ibarra-brown and flattened with no definitive polyps or lesions identified. . Brick Machine Operator sections are submitted as follows: A1: Ileal margin, perpendicular. A2: Cecal margin, perpendicular. A3: Mesenteric root. A4: Sections of ileum. A5: Anastomotic site. A6: Colon. ([id number]) /PRATEEK 01/27/2024 1353 Local . 01 Pathologist provided ICD-10: K56.609, K55.9, K56.2 . 01 CPT . 441491 Specimen Comment: A courtesy copy of this report has been sent to [phone] Performed at: 01 [facility] [address] [place] [address] [id number] MD Fernando Bond MD Phone: [phone]
[2024-01-21] MEDS: METOCLOPRAMIDE 10 MG/2 ML INJ 5 MG IV ×2 (03:49→13:13)
[2024-01-21] MEDS: HYDROMORPHONE 1 MG INJ IV ×3 (03:52→13:14)
[2024-01-21 04:54] LABS: Add Manual Diff / Slide Review NO; Basophils Absolute Auto 0 /uL (0-100); Basophils Percent Auto 0.3 % (0-2); Eosinophils Absolute Auto 0 /uL (0-450); Eosinophils Percent Auto 0.3 % (2-4); Hemoglobin 12.8 g/dL (12.0-16.0); Lymphocytes Absolute Auto 800 /uL (1100-4500); Lymphocytes Percent Auto 9.3 % (25-40); Mean Corpuscular HGB Conc 33.8 % (30-36); Mean Corpuscular Volume 91.6 fL (80-100); Monocytes Absolute Auto 1400 /uL (0-900); Monocytes Percent Auto 16.9 % (3-14); Neutrophils Absolute Auto 6100 /uL (1500-7000); Neutrophils Percent Auto 73.2 % (50-75); Platelet Count 243 X10^3/uL (150-400); Red Blood Cell Count 4.14 X10^6/uL (4.0-5.2); Red Cell Distribution Width 13.4 % (11.6-14.8); White Blood Cell Count 8.3 X10^3/uL (4.5-11.0)
--- NOTE | 2024-01-21 05:00 | DI.RAD.S_ITS ---
PROCEDURE: XR ABDOMEN 1V INDICATIONS: f/u gastrografin TECHNIQUE: One view of the abdomen acquired. COMPARISON: [facility], CR, XR GASTROGRAFIN CHALLENGE, 01/20/2024, 17:09. [facility], CR, XR ABDOMEN 1V, 01/19/2024, 12:43. FINDINGS: Surgical changes and devices: There is a nasogastric tube in the stomach. Surgical clips in the right lower abdomen. Bowel: Bowel gas pattern is dilated. Oral contrast is in the distal small bowel. No definitive colonic oral contrast. Soft tissues: No suspicious abdominal calcifications. Visualized solid organ contours appear normal in size. Bones: No suspicious bony lesions. IMPRESSION: 1. Distended small intestine consistent with small bowel obstruction. 2. Contrast is seen in the distal small bowel. No definitive oral contrast in colon. Dictated by: Chuckie Deluna M.D. on 01/21/2024 at 11:05 Approved by: Chuckie Deluna M.D. on 01/21/2024 at 11:08
[2024-01-21 05:06] LABS: Alanine Aminotransferase 13 IU/L (<35); Albumin 3.3 g/dL (3.5-5.0); Albumin Globulin Ratio 1.3 (1.0-2.8); Alkaline Phosphatase 59 U/L (38-126); Aspartate Aminotransferase 22 IU/L (14-36); BUN Creatinine Ratio 29.2 (6-22); Blood Urea Nitrogen 19 mg/dL (7-17); Calcium 8.2 mg/dL (8.4-10.2); Carbon Dioxide 30 mmol/L (22-32); Chloride 97 mmol/L (98-107); Estimated Glomerular Filt Rate > 60 mL/min (>60); Globulin 2.6 g/dL (1.7-4.1); Glucose 111 mg/dL (80-110); HEMOLYSIS < 15 (0-50); Potassium 3.7 mmol/L (3.4-5.1); Sodium 133 mmol/L (137-145); Total Protein 5.9 g/dL (6.3-8.2)
--- NOTE | 2024-01-21 05:42 | PC.NURSE ---
Noted active bowel tones this morning @ 0350 this morning. C/O nausea & abdominal pain & cramping. Reglan & Dilaudid administered earlier. Temp. 99.8, will monitor & report to day RN.
--- NOTE | 2024-01-21 07:27 | PM.PN.1 ---
Subjective Subjective Interval history: No real improvement in symptoms. No flatus. She is having ongoing abdominal pain, the pain medication is helping to a degree. Exam Vital Signs (past 8 hours): - 01/21/24 00:00 01/21/24 04:00 Temperature 97.8 F 99.8 F H Pulse Rate 81 87 Respiratory Rate 16 19 Blood Pressure 114/66 125/69 Pulse Oximetry 93 92 Oxygen Flow Rate 0 0 Oxygen Delivery Method Room Air Oxygen Flow Rate 0 Narrative Exam Narrative: NAD, flat affect. Fluent speech. Lungs are clear with normal effort Heart is regular, no murmur Abdomen is distended, hyper tympanic, and somewhat tender. She is hyperactive bowel tones. Extremities are free of edema. Objective Labs 01/21/24 04:40 01/21/24 04:40 Labs: Laboratory Results - last 24 hr 01/21/24 04:40 WBC 8.3 RBC 4.14 Hgb 12.8 Hct 38.0 MCV 91.6 MCH 31.0 MCHC 33.8 RDW 13.4 Plt Count 243 Neut % (Auto) 73.2 Lymph % (Auto) 9.3 L [place] % (Auto) 16.9 H Eos % (Auto) 0.3 L Baso % (Auto) 0.3 Neut # (Auto) 6100 Lymph # (Auto) 800 L [place] # (Auto) 1400 H Eos # (Auto) 0 Baso # (Auto) 0 Sodium 133 L Potassium 3.7 Chloride 97 L Carbon Dioxide 30 BUN 19 H Creatinine 0.65 Estimated GFR > 60 BUN/Creatinine Ratio 29.2 H Glucose 111 H Calcium 8.2 L Total Bilirubin 1.0 AST 22 ALT 13 Alkaline Phosphatase 59 Total Protein 5.9 L Albumin 3.3 L Globulin 2.6 Albumin/Globulin Ratio 1.3 PFSH Medical History Septic shock Infection of total right knee replacement Septic arthritis Osteoarthritis History of total right knee replacement Anemia Surgical History Status post revision of total replacement of right knee Hx of total knee arthroplasty Social History household members: spouse and family Smoking Status: Never smoker alcohol intake: current Assessment & Plan Assessment & Plan narrative: 1. SBO secondary to adhesions, active. - continue NG tube, replaced early AM of 01/20 - continue IV fluids, NPO status - general surgery consultation, Discussed this morning with Dr. Yeager, likely surgery today for release of bowel obstruction. 2. Paroxysmal afib on anticoagulation, stable. - hold home eliquis for now - on home diltiazem for rate control, will hold for now, can replace with IV prn dosing for rate control. 3. Remote colon cancer, not active. 4. Chronic anemia, stable. - history of anemia, labs slightly improved but likely dehdyration. Hg uptrending at 12.8. Continue to follow but no signs of active bleeding. 5. Hypokalemia, acute, present on admission - due to GI losses, continue IV repletion. Improved to 3.8 this morning. Code: Full, surrogate is patient's spouse DVT: hold anticoagulation, okay for SCDs I have utilized all available immediate resources to obtain, update, or review the patient's current medications. Dispo: Inpatient, her stay is expected to exceed two midnights. Time Spent With Patient Time with patient: 30 to 49 minutes with 50% spent counseling/coordinating care Quality VTE Deep Vein Thrombosis/Pulmonary Embolism Present on Admission: No
[2024-01-21] MEDS: SODIUM CHLORIDE 0.45% 1,000 ML 100 ML IV ×2 (07:30→21:02)
[2024-01-21] MEDS: ONDANSETRON 4 MG/2 ML INJ IV (09:17)
--- NOTE | 2024-01-21 14:14 | PM.CALLCOV.1 ---
Call Coverage Note Note Date of Patient Contact: 01/21/24 Time of Patient Contact: 14:14 Narrative of Care Provided: 73-year-old woman history of colon cancer status post ileocecectomy 2018 admitted to the hospital with a small-bowel obstruction. She is undergone conservative management with nasogastric tube decompression and a Gastrografin challenge was performed which after 24 hours demonstrates no passage of contrast into the colon. She remains uncomfortable with abdominal distention. I discussed with her and her the results of her evaluation thus far and recommended at this point we proceed to the operating room for an an exploratory laparotomy. Overview of the operation was discussed. Operative risks including but not limited to hemorrhage, infection, damage to surrounding structures, anastomotic leak were discussed. Her questions have been answered and she is in agreement with this plan. A formal written consent will be obtained.
--- NOTE | 2024-01-21 15:05 | PC.NURSE ---
Pt to OR via bed for surgical procedure. Chart with Pt.
--- NOTE | 2024-01-21 15:12 | CM.DPC ---
DCP Cont. Reviewed EMR and team rounds for pt's status updates. Pt was taken to the OR today for SBO surgery. Will continue to monitor for progress and any d/c needs to begin working on by tomorrow am.
[2024-01-21] MEDS: LACTATED RINGERS 1,000 ML 42 ML IV ×2 (15:26→17:25)
[2024-01-21] MEDS: PIPERACILLIN/TAZO 3.375 GM in SODIUM CHLORIDE 0.9% 100 ML IV (16:24)
--- NOTE | 2024-01-21 16:41 | SUR.OPER ---
Supine on padded OR bed, head on pillow, arms secured on padded arm boards at <90 degrees abduction, legs uncrossed, safety belt at thigh, tape over blanket over lower legs. Gel pad under bilateral heels and placed between patients urinary catheter tubing and posterior upper leg.
[2024-01-21] MEDS: BUPIVACAINE LIPOSOME 266 MG/20 ML VIAL INJ (16:53)
[2024-01-21] MEDS: BUPIVACAINE 0.25% (PF) VIAL 30 ML INJ (16:53)
--- NOTE | 2024-01-21 17:36 | P.OP_ITS ---
Operative Date/Time/Diagnoses Date of procedure: 01/21/24 Time of procedure: 17:37 Pre-op diagnosis: Small-bowel obstruction Post-op diagnosis: same Procedure & Clinicians Procedure: Exploratory laparotomy Enterectomy Colectomy Same procedure as scheduled: Yes Indications: 73-year-old woman with a history of a ileocecectomy for malignancy 8 years ago presents with a small-bowel obstruction. Despite conservative management with decompression and a Gastrografin challenge she remains obstructed in is taken to the operating room for an exploratory laparotomy. Surgeon: Ermias Yeager Operative Notes Findings: Ischemic distal colon including the ileocolic anastomosis Specimen(s): other (Small-bowel and colon) Estimated Blood Loss (mL): 50 Procedure in detail: Patient was brought to the operating room placed supine on the table. Bilateral lower extremity compression devices were applied. General anesthesia was induced and she was intubated with an endotracheal tube. The Burger catheter was sterilely placed. She was prepped and draped in sterile fashion. She received Zosyn prior to skin incision. Time-out was performed. A midline laparotomy was made the fascia was grasped elevated sharply incised and the abdomen was entered atraumatically. There was a large volume of turbid fluid within the abdomen several 100 ml. A lysis of adhesions was performed in order to eviscerate the small bowel. The distal small bowel leading into the previous ileocolonic anastomosis was ischemic it had volvulized around an adhesion. The bowel vi ability not improve with detorsion and remained dark purple. We then performed a enterectomy and colectomy. A window within the mesentery of the small bowel and of the colon just distal to the previous anastomosis was made. The bowel was divided using the KEMAR stapler 75 mm blue load. The mesentery was divided using the LigaSure and passed off the field as specimen. We then proceeded with a [id number] anastomosis. A crotch stitch of silk was placed. An enterotomy and a collect colotomy were made and then the 2 lumens were joined with a 3rd firing of the stapler. The common opening was inspected it was widely patent and hemostatic. The common opening was then closed in a running fashion using 3-0 PDS suture followed by a 2nd layer of imbricating silk suture. The anastomosis was without tension and well perfused without evidence of leak with manual compression. The bowel was then returned to the abdomen after the mesentery was reapproximated using silk suture. The abdomen was copiously lavaged with sterile saline and then the fascia was closed with a 1. PDS suture in running fashion. Skin was stapled closed and a dressing was placed. Patient emerged from anesthesia was extubated and transferred to recovery in stable condition. The sponge and instrument count at the end of the operation was correct. Complications: none Post-operative Condition: stable Disposition: Acute Care
[2024-01-22 02:00] VITALS: BP 124/75; PULSE 87; RESP 20; TEMP 37.7; O2SAT 95
[2024-01-22 02:41] VITALS: TEMP 37.7
[2024-01-22] MEDS: HYDROMORPHONE 1 MG INJ IV ×5 (02:41→18:07)
[2024-01-22 04:39] LABS: Add Manual Diff / Slide Review NO; Basophils Absolute Auto 0 /uL (0-100); Basophils Percent Auto 0.5 % (0-2); Eosinophils Absolute Auto 0 /uL (0-450); Hematocrit 36.9 % (36-46); Hemoglobin 12.6 g/dL (12.0-16.0); Lymphocytes Absolute Auto 600 /uL (1100-4500); Lymphocytes Percent Auto 8.1 % (25-40); Mean Corpuscular HGB Conc 34.2 % (30-36); Mean Corpuscular Hemoglobin 31.3 PG (26-34); Mean Corpuscular Volume 91.6 fL (80-100); Monocytes Absolute Auto 900 /uL (0-900); Monocytes Percent Auto 11.6 % (3-14); Neutrophils Absolute Auto 6100 /uL (1500-7000); Neutrophils Percent Auto 79.8 % (50-75); Platelet Count 230 X10^3/uL (150-400); Red Blood Cell Count 4.03 X10^6/uL (4.0-5.2); Red Cell Distribution Width 13.6 % (11.6-14.8); White Blood Cell Count 7.7 X10^3/uL (4.5-11.0)
[2024-01-22 04:50] LABS: BUN Creatinine Ratio 22.5 (6-22); Blood Urea Nitrogen 16 mg/dL (7-17); Calcium 7.4 mg/dL (8.4-10.2); Carbon Dioxide 29 mmol/L (22-32); Chloride 95 mmol/L (98-107); Estimated Glomerular Filt Rate > 60 mL/min (>60); Glucose 94 mg/dL (80-110); HEMOLYSIS < 15 (0-50); Potassium 3.9 mmol/L (3.4-5.1); Sodium 131 mmol/L (137-145)
[2024-01-22] MEDS: SODIUM CHLORIDE 0.45% 1,000 ML 100 ML IV ×2 (07:10→18:08)
--- NOTE | 2024-01-22 07:31 | PM.PN.1 ---
Subjective Subjective Interval history: She is doing well, good pain control. No nausea. She denies any dyspnea. Exam Vital Signs (past 8 hours): - 01/22/24 02:00 01/22/24 02:41 Temperature 99.8 F H 99.8 F H Pulse Rate 87 Respiratory Rate 20 Blood Pressure 124/75 Pulse Oximetry 95 Oxygen Flow Rate 0 Oxygen Delivery Method Room Air Oxygen Flow Rate 0 Narrative Exam Narrative: NAD, fluent speech. Lungs are clear, normal effort. Heart is regular, no murmur. Abdomen is minimally tender. She is midline incisional dressing in place. Extremities are free of edema. Objective Labs 01/22/24 04:20 01/22/24 04:20 Labs: Laboratory Results - last 24 hr 01/22/24 04:20 WBC 7.7 RBC 4.03 Hgb 12.6 Hct 36.9 MCV 91.6 MCH 31.3 MCHC 34.2 RDW 13.6 Plt Count 230 Neut % (Auto) 79.8 H Lymph % (Auto) 8.1 L [place] % (Auto) 11.6 Eos % (Auto) 0.0 L Baso % (Auto) 0.5 Neut # (Auto) 6100 Lymph # (Auto) 600 L [place] # (Auto) 900 Eos # (Auto) 0 Baso # (Auto) 0 Sodium 131 L Potassium 3.9 Chloride 95 L Carbon Dioxide 29 BUN 16 Creatinine 0.71 Estimated GFR > 60 BUN/Creatinine Ratio 22.5 H Glucose 94 Calcium 7.4 L PFSH Medical History Septic shock Infection of total right knee replacement Septic arthritis Osteoarthritis History of total right knee replacement Anemia Surgical History Status post revision of total replacement of right knee Hx of total knee arthroplasty Social History household members: spouse and family Smoking Status: Never smoker alcohol intake: current Assessment & Plan Assessment & Plan narrative: 1. SBO secondary to adhesions, active. - S/P x lap with enterectomy and colectomy for ischemic colon (distal to ileocoloc anastamosis) and adhesionlysis. There was a large amount of turbid fluid in peritoneum. -NPO, IV fluids. -resume anticoagulation tomorrow. 2. Paroxysmal afib on anticoagulation, stable. - hold home eliquis for now - on home diltiazem for rate control, will hold for now, can replace with IV prn dosing for rate control. 3. Remote colon cancer, not active. 4. Chronic anemia, stable. - history of anemia, labs slightly improved but likely dehdyration. Hg uptrending at 12.8. Continue to follow but no signs of active bleeding. 5. Hypokalemia, present on improved. - due to GI losses, continue IV repletion. Improved to 3.8 this morning. Time Spent With Patient Time with patient: 30 to 49 minutes with 50% spent counseling/coordinating care Quality VTE Deep Vein Thrombosis/Pulmonary Embolism Present on Admission: No
[2024-01-22 08:55] VITALS: BP 129/61; PULSE 94; RESP 18; TEMP 36.8; O2SAT 95
[2024-01-22] MEDS: TETRACAINE/BENZOCAINE/BUTAMBEN (CETACAINE) BOTTLE 1 SPRAY TOP (09:08)
[2024-01-22] MEDS: BENZOCAINE/MENTHOL 1 LOZ PKT 1 EACH PO (09:08)
[2024-01-22] MEDS: METOCLOPRAMIDE 10 MG/2 ML INJ 5 MG IV ×2 (09:22→18:10)
--- NOTE | 2024-01-22 12:21 | PM.PNPO.1 ---
Subjective Subjective Date Patient Seen: 01/22/24 Time Patient Seen: 12:22 Interval history: Postoperative day 1 status post ex lap small bowel resection for SBO. Complaining of throat pain related to nasogastric tube. No acute overnight events. Exam Vital Signs (past 8 hours): - 01/22/24 08:55 Temperature 98.2 F Pulse Rate 94 H Respiratory Rate 18 Blood Pressure 129/61 Pulse Oximetry 95 Oxygen Delivery Method Room Air Oxygen Flow Rate 0 Narrative Exam Narrative: General adult woman alert oriented no acute distress Abdomen soft appropriately tender to palpation. Nasogastric tube with gastric output nonbilious. Objective Labs 01/22/24 04:20 01/22/24 04:20 Labs: Laboratory Results - last 24 hr 01/22/24 04:20 WBC 7.7 RBC 4.03 Hgb 12.6 Hct 36.9 MCV 91.6 MCH 31.3 MCHC 34.2 RDW 13.6 Plt Count 230 Neut % (Auto) 79.8 H Lymph % (Auto) 8.1 L [place] % (Auto) 11.6 Eos % (Auto) 0.0 L Baso % (Auto) 0.5 Neut # (Auto) 6100 Lymph # (Auto) 600 L [place] # (Auto) 900 Eos # (Auto) 0 Baso # (Auto) 0 Sodium 131 L Potassium 3.9 Chloride 95 L Carbon Dioxide 29 BUN 16 Creatinine 0.71 Estimated GFR > 60 BUN/Creatinine Ratio 22.5 H Glucose 94 Calcium 7.4 L PFSH Medical History Septic shock Infection of total right knee replacement Septic arthritis Osteoarthritis History of total right knee replacement Anemia Surgical History Status post revision of total replacement of right knee Hx of total knee arthroplasty Social History household members: spouse and family Smoking Status: Never smoker alcohol intake: current Assessment & Plan Post-op Postoperative Procedures: Procedures Operation Date: 01/21/24 16:15 Actual Procedure Side Surgeon p Exploratory Laparotomy with Small Bowel Resection Ermias Yeager MD Postoperative plan narrative: 73-year-old woman postoperative day 1 status post exploratory laparotomy small-bowel resection for a small-bowel obstruction. Minimal volume of NG content and having significant discomfort secondary to the nasogastric tube will remove. Okay for sips of clears. Physical therapy Resume apixaban tomorrow If return of bowel function advanced clears. Remove urinary catheter. Quality VTE Deep Vein Thrombosis/Pulmonary Embolism Present on Admission: No
--- NOTE | 2024-01-22 13:21 | CM.DPC ---
DCP Cont. Reviewed the EMR and team rounds for pt's status updates. Plan is to continue to advance her diet today, probable d/c in 1-2 more days, per Hospitalist. Will continue to monitor for any d/c needs.
[2024-01-22 16:00] VITALS: BP 136/53; PULSE 88; RESP 16; TEMP 37.3; O2SAT 96
--- NOTE | 2024-01-22 16:37 | PT.IIE ---
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 Osteoarthritis Septic arthritis Septic shock Physical Therapy Inpatient Evaluation/Re-Eval M1 PT/OT-IP Prior Functional Status Start: 01/22/24 15:50 Freq: NEEDED Status: Active Protocol: Document 01/22/24 13:50 MB (Rec: 01/22/24 16:36 MB [id number]) Medical Review Prior Functional Status Medical History Reviewed Yes Diet/Fluid Consistency Regular Communication WNLs Mobility and Gait I Activities of Daily Living and IADL's I Prior Functional Level (Other details) I Social History Household Members spouse,family Living Arrangements House Number of Floors (Floors) 3 or More Floors Number of Stairs To Enter/Railing? 7 steps and two wide rails to enter, pt has a split level home/tri level with many sets of steps Home Environment Standard Height Toilet,Walk in Shower Home Equipment Front Wheel Walker,Manual Wheelchair,Bedside Commode, Grab Bars In Shower Employment Status Retired M2 PT-IP Current Condition Start: 01/22/24 15:50 Freq: NEEDED Status: Active Protocol: Document 01/22/24 13:50 MB (Rec: 01/22/24 16:36 MB [id number]) Physical Therapy Current Condition Current Condition Evaluation Date 01/22/24 Treatment Diagnosis SBO s/p laparoscopic sx M3 PT-IP Subjective Start: 01/22/24 15:50 Freq: NEEDED Status: Active Protocol: Document 01/22/24 13:50 MB (Rec: 01/22/24 16:36 MB [id number]) Subjective Physical Therapy Visit Type Type Initial Evaluation Visit Start Time 13:50 Visit Stop Time 16:22 Number of WAITER WAITRESS Visits 0 Physical Therapy Visit Comments Patient Comments I'll try. Therapy Pain Assessment Pain When Pain Assessed At Rest Pain Present Pain Present Pain Reported Location Lower abdominal Intensity 5 Scale Used Numeric (0 - 10) M4 PT-IP Mobility and Gait Start: 01/22/24 15:50 Freq: NEEDED Status: Active Protocol: Document 01/22/24 13:50 MB (Rec: 01/22/24 16:36 MB [id number]) PT-Bed Mobility Assessment Rolling Type of Rolling Log Rolling,Roll to Right Level of Assist Minimal Assistance,1 Person Assistance Supine to Sit Supine to Sit Moderate Assistance,1 Person Assistance Scooting Scooting to Edge of Bed Minimal Assistance PT-Transfer Assessment Sit to and From Stand Sit to and from Stand Moderate Assistance,1 Person Assistance,Use of Upper Extremities Equipment Transfer Assistive Device Gait Belt,Front Wheeled Walker Orthotic/Prosthetic Devices or Brace: No Transfers Transfer Destination Bedside Commode Transfer Technique Stepping Transfer Ability Level of Assist Moderate Assistance,1 Person Assistance,Use of Upper Extremities Comments Mobility Comments CONE EXAMINER nearby during PT assessment and PT and CONE EXAMINER work together to assist pt to BSC, small wash, changing gown and changing bed. Pt does not help much with any task and appears nauseated and weak. She has very clear rotatory nystagmus with partial left head turn and roll in bed before treatment and reports history of BPPV. Nystagmus is transient and consistent with left-sided BPPV. PT cannot treat today d/t pt's overall poor presentation/feeling Gait Assessment Gait Gait Assistance Required: Moderate Assistance,1 Person Assist Distance (Feet) 2 Able to Maintain Weight Bearing Status Yes During Gait Assistive Devices Assistive Device Gait Belt,Front Wheeled Walker Gait Deviations General Gait Pattern Decreased Stride Length, Decreased Feet Clearance, Flexed Trunk,Wide Based Gait Factors Limiting Gait Function Factors Limiting Gait Function Decreased Activity Tolerance, Decreased Strength,Difficulty Following Directions,Pain,Poor Balance,Poor Safety Awareness Comments Gait Comments Pt is very weak through her legs today and requires cues to push through her legs for transfers and with stepping from bed to BSC to the left and then from BSC to chair to the right after toileting. BP not check d/t restricted right limb and left limb with IV. PT-Balance Assessment Sitting Balance and Reactions Static Sitting Balance Ability Fair Dynamic Sitting Balance Ability Poor Standing Balance and Reactions Static Standing Balance Ability Poor Dynamic Standing Balance Ability Poor Device Used RW M5 PT-IP Objective Assessments Start: 01/22/24 15:50 Freq: NEEDED Status: Active Protocol: Document 01/22/24 13:50 MB (Rec: 01/22/24 16:36 MB [id number]) Orientation Orientation/Cognition Level of Alertness Confusional State Orientation Name,Age,Birthday,Place Language Function Ability No Deficits Noted Safety Awareness Decreased Safety Awareness Memory Description No Deficits Noted Gross Range of Motion Upper Extremity ROM Impairments Defer to OT Lower Extremity ROM Assessment Within Functional Limits Strength Lower Extremity Strength Assessment Bilaterally Impaired Comments Strength Comments Pt with functional weakness in both legs today with transfers with strength no more than 3-/5 either leg and buckling at hips and knees with standing: pt overall feeling poorly M6 PT-IP Treatment Start: 01/22/24 15:50 Freq: NEEDED Status: Active Protocol: Document 01/22/24 13:50 MB (Rec: 01/22/24 16:36 MB [id number]) Physical Therapy Treatment Education Education Provided Precautions,Safety Other Treatments Other Treatment Performed Multiple therapeutic activities as mentioned above: toileting, washing up, changing gown, hygiene after toileting, ed pt about log roll technique and not lifting , treating BPPV when she can tolerate being layed back quickly M7 PT-IP Assessment and Plan Start: 01/22/24 15:50 Freq: NEEDED Status: Active Protocol: Document 01/22/24 13:50 MB (Rec: 01/22/24 16:36 MB [id number]) PT Summary Assessment and Plan Potential Rehabilitation Potential Good Status of Condition at Evaluation Evolving Summary Impairments Pain,Strength,Balance, Cognition,Bed Mobility, Transfers,Gait,Activity Tolerance Progress Towards Goals Slow Progress due to Medical Issues,Slow Progress due to Activity Tolerance Assessment Summary Pt is a 73 y/o who is feeling pretty poorly POD1 laproscopic surgery for SBO. She has both catheter and NG pulled right before PT treatment per nsg. She has very clear rotatory nystagmus with partial left head turn and roll in bed before treatment and reports history of BPPV. Nystagmus is transient and consistent with left-sided BPPV. PT cannot treat today d/t pt's overall poor presentation/feeling. Pt requires moderate assistance for most functional mobility tasks today and dependent assistance from CONE EXAMINER for toileting, washing up and hygiene tasks. She will benefit from ongoing PT to improve functional I. Goals Bed Mobility Goal Independent Transfer Goal Independent,Front Wheeled Walker Gait Goal Independent,Front Wheel Walker Gait Distance 100 Other Goals Pt will ascend and descend 7 steps with rail and no more than CGA to allow safe home entrance. Days to Meet Goals 10 Frequency of Treatment Frequency Of Treatment Once a Day Treatment Plan Physical Therapy Treatment Plan Bed Mobility Training,Transfer Training,Gait Training, Therapeutic Exercise,Balance Retraining,Post Op Education, Discharge Planning,Hot or Cold Pack,Neuromuscular Re-ed Other Recommendations and Next Treatment If pt is better and can Focus tolerate treatment, vestibular PT to treat BPPV. She may not get well enough in the acute setting for this to take place . Precautions Abdominal Surgery Precautions Log Roll,Lifting Restrictions, Gait Belt above Incisional Area Other Precautions Left sided BPPV Weight Bearing Status Weight Bearing Status Weight Bear as Tolerated Recommendations To Nursing Amount of Assist Needed 2 Person Assist Discharge Recommendations PT Discharge Recommendations Home vs SNF Transportation Needs at Discharge Private Vehicle,Wheelchair/ Cabulance
[2024-01-22 18:31] VITALS: TEMP 37.6
[2024-01-22] MEDS: ACETAMINOPHEN IV 1,000 MG/100 ML VIAL 400 MG IV (18:35)
[2024-01-22 22:00] VITALS: BP 127/56; PULSE 86; RESP 19; TEMP 36.8; O2SAT 96
[2024-01-23 02:00] VITALS: BP 126/69; PULSE 88; RESP 19; TEMP 36.7; O2SAT 94
[2024-01-23] MEDS: HYDROMORPHONE 0.5 MG INJ IV ×5 (03:35→21:40)
[2024-01-23] MEDS: SODIUM CHLORIDE 0.45% 1,000 ML 100 ML IV (03:44)
[2024-01-23 04:32] LABS: Add Manual Diff / Slide Review NO; Basophils Absolute Auto 0 /uL (0-100); Basophils Percent Auto 0.4 % (0-2); Eosinophils Absolute Auto 100 /uL (0-450); Eosinophils Percent Auto 1.3 % (2-4); Hematocrit 32.5 % (36-46); Hemoglobin 11.2 g/dL (12.0-16.0); Lymphocytes Absolute Auto 600 /uL (1100-4500); Lymphocytes Percent Auto 8.3 % (25-40); Mean Corpuscular HGB Conc 34.6 % (30-36); Mean Corpuscular Hemoglobin 31.4 PG (26-34); Mean Corpuscular Volume 90.9 fL (80-100); Monocytes Absolute Auto 900 /uL (0-900); Monocytes Percent Auto 13.2 % (3-14); Neutrophils Absolute Auto 5200 /uL (1500-7000); Neutrophils Percent Auto 76.8 % (50-75); Platelet Count 208 X10^3/uL (150-400); Red Blood Cell Count 3.58 X10^6/uL (4.0-5.2); Red Cell Distribution Width 13.2 % (11.6-14.8); White Blood Cell Count 6.8 X10^3/uL (4.5-11.0)
[2024-01-23 04:48] LABS: Blood Urea Nitrogen 11 mg/dL (7-17); Calcium 7.5 mg/dL (8.4-10.2); Carbon Dioxide 25 mmol/L (22-32); Chloride 98 mmol/L (98-107); Estimated Glomerular Filt Rate > 60 mL/min (>60); Glucose 79 mg/dL (80-110); HEMOLYSIS < 15 (0-50); Potassium 3.2 mmol/L (3.4-5.1); Sodium 133 mmol/L (137-145)
[2024-01-23 05:38] VITALS: BP 122/60; PULSE 78; RESP 20; TEMP 37.9; O2SAT 94
--- NOTE | 2024-01-23 07:40 | PM.PN.1 ---
Subjective Subjective Interval history: She is feeling better, less pain. One BM. No dyspnea or chest pain. Exam Vital Signs (past 8 hours): - 01/23/24 02:00 01/23/24 05:38 Temperature 98.0 F 100.3 F H Pulse Rate 88 78 Respiratory Rate 19 20 Blood Pressure 126/69 122/60 Pulse Oximetry 94 94 Oxygen Flow Rate 0 Oxygen Delivery Method Room Air Oxygen Flow Rate 0 Narrative Exam Narrative: No acute distress, fluent speech, calm. Lungs are clear, normal rate and effort. Heart is regular, no murmur gallop or rub. Abdomen is non tender other than around the incision. Is also non distended. Extremities are free of edema. Objective Labs 01/23/24 04:06 01/23/24 04:06 Labs: Laboratory Results - last 24 hr 01/23/24 04:06 WBC 6.8 RBC 3.58 L Hgb 11.2 L Hct 32.5 L MCV 90.9 MCH 31.4 MCHC 34.6 RDW 13.2 Plt Count 208 Neut % (Auto) 76.8 H Lymph % (Auto) 8.3 L [place] % (Auto) 13.2 Eos % (Auto) 1.3 L Baso % (Auto) 0.4 Neut # (Auto) 5200 Lymph # (Auto) 600 L [place] # (Auto) 900 Eos # (Auto) 100 Baso # (Auto) 0 Sodium 133 L Potassium 3.2 L Chloride 98 Carbon Dioxide 25 BUN 11 Creatinine 0.55 Estimated GFR > 60 BUN/Creatinine Ratio 20.0 Glucose 79 L Calcium 7.5 L PFSH Medical History Septic shock Infection of total right knee replacement Septic arthritis Osteoarthritis History of total right knee replacement Anemia Surgical History Status post revision of total replacement of right knee Hx of total knee arthroplasty Social History household members: spouse and family Smoking Status: Never smoker alcohol intake: current Assessment & Plan Assessment & Plan narrative: 1. SBO secondary to adhesions, active. - S/P x lap with enterectomy and colectomy for ischemic colon (distal to ileocoloc anastamosis) and adhesionlysis. There was a large amount of turbid fluid in peritoneum. - clear liqs today -resume anticoagulation today (01/23). 2. Paroxysmal afib on anticoagulation, stable. - resume home eliquis today, 01/23. - on home diltiazem for rate control, will hold for now, can replace with IV prn dosing for rate control. 3. Remote colon cancer, not active. 4. Chronic anemia, stable. - history of anemia, labs slightly improved but likely dehdyration. Hg uptrending at 12.8. Continue to follow but no signs of active bleeding. 5. Hypokalemia, present on improved. -replete again today. OOB, DISPO possibly home 1-2 days. Time Spent With Patient Time with patient: 30 to 49 minutes with 50% spent counseling/coordinating care Quality VTE Deep Vein Thrombosis/Pulmonary Embolism Present on Admission: No
[2024-01-23 08:19] VITALS: BP 128/66; PULSE 82; RESP 19; TEMP 37.1; O2SAT 98
[2024-01-23] MEDS: POTASSIUM CHLORIDE 20 MEQ/15 ML UDC 40 MEQ PO (10:05)
[2024-01-23] MEDS: APIXABAN 5 MG TABLET PO ×2 (10:05→20:11)
[2024-01-23] MEDS: ONDANSETRON 4 MG/2 ML INJ IV (10:07)
--- NOTE | 2024-01-23 10:55 | PT.IPTN ---
Current Diagnoses Intestinal adhesions [bands], unspecified as to partial versus complete obstruction (01/18/24) Unspecified intestinal obstruction, unspecified as to partial versus complete obstruction (01/18/24) Surgery Performed Operation Date: 01/21/24 16:15 Actual Procedures p Exploratory Laparotomy with Small Bowel Resection - Ermias Yeager MD Physical Therapy Treatment Note M2 PT-IP Current Condition Start: 01/22/24 15:50 Freq: NEEDED Status: Active Protocol: Document 01/22/24 13:50 MB (Rec: 01/22/24 16:36 MB [id number]) Physical Therapy Current Condition Current Condition Evaluation Date 01/22/24 Treatment Diagnosis SBO s/p laparoscopic sx M3 PT-IP Subjective Start: 01/22/24 15:50 Freq: NEEDED Status: Active Protocol: Document 01/23/24 10:55 AB (Rec: 01/23/24 14:07 AB [id number]) Subjective Physical Therapy Visit Type Type Treatment Note Visit Start Time 10:55 Visit Stop Time 11:15 Number of HOTEL MAID Visits 0 Physical Therapy Visit Comments Patient Comments agreeable to do PT Therapy Pain Assessment Pain When Pain Assessed At Rest Pain Present Pain Present Pain Reported Location Lower abdominal Scale Used pain scale not stated Description Spasm Pain Management Techniques Distraction,Modification of Treatment,Re-positioning, Timing of Activity with Medications M4 PT-IP Mobility and Gait Start: 01/22/24 15:50 Freq: NEEDED Status: Active Protocol: Document 01/23/24 10:55 AB (Rec: 01/23/24 14:07 AB [id number]) PT-Bed Mobility Assessment Rolling Type of Rolling Log Rolling Level of Assist Moderate Assistance,Maximal Assistance Supine to Sit Supine to Sit Moderate Assistance,Maximum Assistance,1 Person Assistance PT-Transfer Assessment Sit to and From Stand Sit to and from Stand Minimal Assistance,Moderate Assistance,1 Person Assistance ,Use of Upper Extremities Equipment Transfer Assistive Device Gait Belt,Front Wheeled Walker Orthotic/Prosthetic Devices or Brace: No Transfers Transfer Destination Chair Transfer Technique ambulated Transfer Ability Level of Assist Minimal Assistance,1 Person Assistance,Use of Upper Extremities Comments Mobility Comments Per PT yesterday: pt with L sided BPPV. talked to pt does not want to address BPPV at this time and will address as outpt basis if needed. pt agreed to do mobility with PT. pt supine in bed and spouse in room. pt agreeable to do PT. reviewed abdominal precautions with pt and spouse . pt completed log roll supine to sit mod to max a and max cues. completed sit to stand min to mod A and max cues and ambulated to the chair using FWW min A. pt refused further ambulation. positioned pt on the chair. call light and table placed within reach. Gait Assessment Gait Gait Assistance Required: Minimum Assistance Distance (Feet) 12 Able to Maintain Weight Bearing Status Yes During Gait Assistive Devices Assistive Device Gait Belt,Front Wheeled Walker Orthotic/Prosthetic Devices or Brace: No Gait Deviations General Gait Pattern Decreased Stride Length, Decreased Feet Clearance,Step- to Gait Factors Limiting Gait Function Factors Limiting Gait Function Decreased Activity Tolerance, Decreased Strength,Limited Range of Motion,Pain,Poor Balance,Poor Safety Awareness M5 PT-IP Objective Assessments Start: 01/22/24 15:50 Freq: NEEDED Status: Active Protocol: Document 01/22/24 13:50 MB (Rec: 01/22/24 16:36 MB [id number]) Orientation Orientation/Cognition Level of Alertness Confusional State Orientation Name,Age,Birthday,Place Language Function Ability No Deficits Noted Safety Awareness Decreased Safety Awareness Memory Description No Deficits Noted Gross Range of Motion Upper Extremity ROM Impairments Defer to OT Lower Extremity ROM Assessment Within Functional Limits Strength Lower Extremity Strength Assessment Bilaterally Impaired Comments Strength Comments Pt with functional weakness in both legs today with transfers with strength no more than 3-/5 either leg and buckling at hips and knees with standing: pt overall feeling poorly M6 PT-IP Treatment Start: 01/22/24 15:50 Freq: NEEDED Status: Active Protocol: Document 01/23/24 10:55 AB (Rec: 01/23/24 14:07 AB [id number]) Physical Therapy Treatment Education Education Provided Precautions,Safety M7 PT-IP Assessment and Plan Start: 01/22/24 15:50 Freq: NEEDED Status: Active Protocol: Document 01/23/24 10:55 AB (Rec: 01/23/24 14:07 AB [id number]) PT Summary Assessment and Plan Potential Rehabilitation Potential Fair Summary Impairments Pain,ROM,Strength,Balance, Coordination,Sensation,Tone, Cognition,Bed Mobility, Transfers,Gait,Activity Tolerance Progress Towards Goals Slow Progress due to Activity Tolerance Assessment Summary pt progressing slowly with mobility. pt requires mod to max A for bed mobility log roll, min to mod A for transfers and ambulation using fWW. pt presents with decrease activity tolerance affecting mobility independence. pt plans to go home and spouse to assist. will conduct caregiver training when appropriate. will also complete stair climbing training prior to d/c . will continue to assess. Goals Bed Mobility Goal Independent Transfer Goal Independent,Front Wheeled Walker Gait Goal Independent,Front Wheel Walker Gait Distance 100 Other Goals Pt will ascend and descend 7 steps with rail and no more than CGA to allow safe home entrance. Days to Meet Goals 10 Frequency of Treatment Frequency Of Treatment Once a Day Treatment Plan Physical Therapy Treatment Plan Bed Mobility Training,Transfer Training,Gait Training, Therapeutic Exercise,Balance Retraining,Post Op Education, Discharge Planning,Hot or Cold Pack,Neuromuscular Re-ed Precautions Abdominal Surgery Precautions Log Roll,Lifting Restrictions, Gait Belt above Incisional Area Weight Bearing Status Weight Bearing Status Weight Bear as Tolerated Recommendations To Nursing Amount of Assist Needed 1 Person Assist Discharge Recommendations PT Discharge Recommendations Home with 24/ Assist Available,Home Health Transportation Needs at Discharge Private Vehicle,Wheelchair/ Cabulance
[2024-01-23] MEDS: SCOPOLAMINE 1 PATCH TOP (11:17)
[2024-01-23 12:00] VITALS: BP 111/55; PULSE 80; RESP 19; TEMP 36.8; O2SAT 95
--- NOTE | 2024-01-23 12:50 | P.PN_ITS ---
Subjective Subjective Date Patient Seen: 01/23/24 Time Patient Seen: 12:50 Interval history: Return of bowel function overnight No major overnight events. Exam Vital Signs (past 8 hours): - 01/23/24 05:38 01/23/24 08:19 01/23/24 12:00 Temperature 100.3 F H 98.8 F 98.3 F Pulse Rate 78 82 80 Respiratory Rate 20 19 19 Blood Pressure 122/60 128/66 111/55 L Pulse Oximetry 94 98 95 Oxygen Flow Rate 0 0 0 Oxygen Delivery Method Room Air Oxygen Flow Rate 0 Narrative Exam Narrative: General adult woman alert oriented no acute distress Abdomen soft appropriately tender to palpation. Dressing clean dry intact. Objective Labs 01/23/24 04:06 01/23/24 04:06 Labs: Laboratory Results - last 24 hr 01/23/24 04:06 WBC 6.8 RBC 3.58 L Hgb 11.2 L Hct 32.5 L MCV 90.9 MCH 31.4 MCHC 34.6 RDW 13.2 Plt Count 208 Neut % (Auto) 76.8 H Lymph % (Auto) 8.3 L [place] % (Auto) 13.2 Eos % (Auto) 1.3 L Baso % (Auto) 0.4 Neut # (Auto) 5200 Lymph # (Auto) 600 L [place] # (Auto) 900 Eos # (Auto) 100 Baso # (Auto) 0 Sodium 133 L Potassium 3.2 L Chloride 98 Carbon Dioxide 25 BUN 11 Creatinine 0.55 Estimated GFR > 60 BUN/Creatinine Ratio 20.0 Glucose 79 L Calcium 7.5 L PFSH Medical History Septic shock Infection of total right knee replacement Septic arthritis Osteoarthritis History of total right knee replacement Anemia Surgical History Status post revision of total replacement of right knee Hx of total knee arthroplasty Social History household members: spouse and family Smoking Status: Never smoker alcohol intake: current Assessment & Plan Post-op Postoperative Procedures: Procedures Operation Date: 01/21/24 16:15 Actual Procedure Side Surgeon p Exploratory Laparotomy with Small Bowel Resection Ermias Yeager MD Postoperative plan narrative: 73-year-old woman postoperative day 2 status post exploratory laparotomy with small-bowel resection for SBO. Recovering appropriately after surgery has return of bowel function. -full liquid diet -DC IV fluids -SCDs okay to resume apixaban today -PTOT Quality VTE Deep Vein Thrombosis/Pulmonary Embolism Present on Admission: No
--- NOTE | 2024-01-23 14:21 | CM.DPC ---
DCP Cont. Reviewed EMR and team rounds for status updates. Plan is for pt to continue to advance her diet, probable d/c either Sat. or Sun this weekend. Will continue to monitor for any d/c resource needs.
[2024-01-23] MEDS: METOCLOPRAMIDE 10 MG/2 ML INJ 5 MG IV (16:09)
[2024-01-23 20:00] VITALS: BP 121/65; PULSE 78; RESP 18; TEMP 37.1; O2SAT 95
[2024-01-23] MEDS: SODIUM CHLORIDE 0.9% FLUSH 10 ML IV ×2 (20:24→21:40)
[2024-01-24] VITALS: BP 131/72; PULSE 80; RESP 20; TEMP 36.7; O2SAT 96
[2024-01-24] MEDS: METOCLOPRAMIDE 10 MG/2 ML INJ 5 MG IV (00:57)
[2024-01-24] MEDS: SODIUM CHLORIDE 0.9% FLUSH 10 ML IV ×3 (00:57→20:02)
[2024-01-24] MEDS: HYDROMORPHONE 0.5 MG INJ IV ×2 (01:01→09:31)
[2024-01-24 04:00] VITALS: BP 122/68; PULSE 75; RESP 18; TEMP 37.1; O2SAT 96
[2024-01-24 07:17] LABS: Add Manual Diff / Slide Review NO; BUN Creatinine Ratio 18.5 (6-22); Basophils Absolute Auto 0 /uL (0-100); Basophils Percent Auto 0.4 % (0-2); Blood Urea Nitrogen 10 mg/dL (7-17); Calcium 7.9 mg/dL (8.4-10.2); Carbon Dioxide 34 mmol/L (22-32); Chloride 98 mmol/L (98-107); Eosinophils Absolute Auto 200 /uL (0-450); Eosinophils Percent Auto 4.4 % (2-4); Estimated Glomerular Filt Rate > 60 mL/min (>60); Glucose 107 mg/dL (80-110); HEMOLYSIS < 15 (0-50); Hemoglobin 10.8 g/dL (12.0-16.0); Lymphocytes Absolute Auto 700 /uL (1100-4500); Lymphocytes Percent Auto 13.1 % (25-40); Mean Corpuscular HGB Conc 34.7 % (30-36); Mean Corpuscular Hemoglobin 31.6 PG (26-34); Mean Corpuscular Volume 91.1 fL (80-100); Monocytes Absolute Auto 800 /uL (0-900); Monocytes Percent Auto 16.6 % (3-14); Neutrophils Absolute Auto 3300 /uL (1500-7000); Neutrophils Percent Auto 65.5 % (50-75); Platelet Count 236 X10^3/uL (150-400); Potassium 3.9 mmol/L (3.4-5.1); Red Cell Distribution Width 13.1 % (11.6-14.8); Sodium 133 mmol/L (137-145)
--- NOTE | 2024-01-24 07:37 | PM.PN.1 ---
Subjective Subjective Interval history: She is having some abdominal pain and had a fairly urgent bowel movement this morning which caused more pain. No dyspnea. She does feel somewhat weak. She denies any nausea. Exam Vital Signs (past 8 hours): - 01/24/24 00:00 01/24/24 04:00 Temperature 98.1 F 98.7 F Pulse Rate 80 75 Respiratory Rate 20 18 Blood Pressure 131/72 122/68 Pulse Oximetry 96 96 Oxygen Delivery Method Room Air Oxygen Flow Rate 0 Narrative Exam Narrative: NAD, normal speech. Lungs are clear with normal effort. Heart is regular, no murmur. Abdomen is slightly tender in the left and right lower quadrant without guarding or rebound. Extremities are free of edema. Objective Labs 01/24/24 06:20 01/24/24 06:20 Labs: Laboratory Results - last 24 hr 01/24/24 06:20 WBC 5.0 RBC 3.40 L Hgb 10.8 L Hct 31.0 L MCV 91.1 MCH 31.6 MCHC 34.7 RDW 13.1 Plt Count 236 Neut % (Auto) 65.5 Lymph % (Auto) 13.1 L [place] % (Auto) 16.6 H Eos % (Auto) 4.4 H Baso % (Auto) 0.4 Neut # (Auto) 3300 Lymph # (Auto) 700 L [place] # (Auto) 800 Eos # (Auto) 200 Baso # (Auto) 0 Sodium 133 L Potassium 3.9 Chloride 98 Carbon Dioxide 34 H BUN 10 Creatinine 0.54 Estimated GFR > 60 BUN/Creatinine Ratio 18.5 Glucose 107 Calcium 7.9 L PFSH Medical History Septic shock Infection of total right knee replacement Septic arthritis Osteoarthritis History of total right knee replacement Anemia Surgical History Status post revision of total replacement of right knee Hx of total knee arthroplasty Social History household members: spouse and family Smoking Status: Never smoker alcohol intake: current Assessment & Plan Assessment & Plan narrative: 1. SBO secondary to adhesions, active. - S/P x lap with enterectomy and colectomy for ischemic colon (distal to ileocoloc anastamosis) and adhesionlysis. There was a large amount of turbid fluid in peritoneum. - clear liqs today -resumed anticoagulation (01/23). 2. Paroxysmal afib on anticoagulation, stable. - resume home eliquis today, 01/23. - on home diltiazem for rate control, will hold for now, can replace with IV prn dosing for rate control. 3. Remote colon cancer, not active. 4. Chronic anemia, stable. - history of anemia, labs slightly improved but likely dehdyration. Hg uptrending at 12.8. Continue to follow but no signs of active bleeding. 5. Hypokalemia, present on improved. -replete again today. OOB DISPO possibly home 1-2 days. Time Spent With Patient Time with patient: 30 to 49 minutes with 50% spent counseling/coordinating care Quality VTE Deep Vein Thrombosis/Pulmonary Embolism Present on Admission: No
[2024-01-24 08:00] VITALS: BP 115/54; PULSE 83; RESP 16; TEMP 36.8; O2SAT 95
--- NOTE | 2024-01-24 09:08 | CM.DPC ---
DCP Cont. Reviewed EMR and team rounds for status updates. Pt is progressing in her diet, improving overall. Kailash d/c 1-more day. Will continue to monitor for any further evolving d/c needs.
[2024-01-24] MEDS: APIXABAN 5 MG TABLET PO ×2 (09:31→20:02)
--- NOTE | 2024-01-24 11:13 | PT.IPTN ---
Current Diagnoses Intestinal adhesions [bands], unspecified as to partial versus complete obstruction (01/18/24) Unspecified intestinal obstruction, unspecified as to partial versus complete obstruction (01/18/24) Surgery Performed Operation Date: 01/21/24 16:15 Actual Procedures p Exploratory Laparotomy with Small Bowel Resection - Ermias Yeager MD Physical Therapy Treatment Note M2 PT-IP Current Condition Start: 01/22/24 15:50 Freq: NEEDED Status: Active Protocol: Document 01/22/24 13:50 MB (Rec: 01/22/24 16:36 MB [id number]) Physical Therapy Current Condition Current Condition Evaluation Date 01/22/24 Treatment Diagnosis SBO s/p laparoscopic sx M3 PT-IP Subjective Start: 01/22/24 15:50 Freq: NEEDED Status: Active Protocol: Document 01/24/24 12:07 TS (Rec: 01/24/24 12:29 TS [id number]) Subjective Physical Therapy Visit Type Type Treatment Note Visit Start Time 11:13 Visit Stop Time 11:41 Notes Has history of BPPV Number of POLICE CAPTAIN Visits 1 Physical Therapy Visit Comments Patient Comments Pt reports pain is 3/10 at rest, had some dizziness with movement, is agreeable to PT. Therapy Pain Assessment Pain When Pain Assessed At Rest Pain Present Pain Present Pain Reported Location Lower abdominal Intensity 3 M4 PT-IP Mobility and Gait Start: 01/22/24 15:50 Freq: NEEDED Status: Active Protocol: Document 01/24/24 12:07 TS (Rec: 01/24/24 12:29 TS [id number]) PT-Bed Mobility Assessment Rolling Type of Rolling Log Rolling Level of Assist Standby Assistance Supine to Sit Supine to Sit Standby Assistance Scooting Scooting to Edge of Bed Standby Assistance PT-Transfer Assessment Sit to and From Stand Sit to and from Stand Standby Assistance Equipment Transfer Assistive Device Gait Belt,Front Wheeled Walker Orthotic/Prosthetic Devices or Brace: No Comments Mobility Comments Logroll to L side SBA with HOB elevated, pt cued for bedrail assist. Supine to sit SBA with BUE support to upright trunk, demonstrates good carryover of sequencing. STS from bed with FWW SBA. She ambulated in room ~30'SBA with slow step to gait. Pt stood at sink for brushing of teeth and combing of hair SBA with no AD. Pt ambulate toilet, performed own pericare. She performed steps x7 with single rail CGA. Pt was left in chair all needs met. Gait Assessment Gait Gait Assistance Required: Standby Assistance Distance (Feet) 30 Able to Maintain Weight Bearing Status Yes During Gait Assistive Devices Assistive Device Gait Belt,Front Wheeled Walker Orthotic/Prosthetic Devices or Brace: No Gait Deviations General Gait Pattern Decreased Stride Length, Decreased Feet Clearance,Step- to Gait Factors Limiting Gait Function Factors Limiting Gait Function Decreased Activity Tolerance, Decreased Strength,Limited Range of Motion,Pain,Poor Balance,Poor Safety Awareness Comments Gait Comments See mobility comments Stair Climbing Assessment Evaluation Level of Assist On Stairs Contact Guard Assistance,1 Person Assistance Devices Stair Climbing Assistive Devices Left Railing Technique/Endurance Stair Climbing Direction Ascend and Descend Stair Climbing Technique Step to Step Number of Steps Climbed 7 Comments Stair Climbing Comments See mobility comments PT-Balance Assessment Sitting Balance and Reactions Static Sitting Balance Ability Good Dynamic Sitting Balance Ability Fair Standing Balance and Reactions Static Standing Balance Ability Fair Dynamic Standing Balance Ability Fair Device Used RW M5 PT-IP Objective Assessments Start: 01/22/24 15:50 Freq: NEEDED Status: Active Protocol: Document 01/22/24 13:50 MB (Rec: 01/22/24 16:36 MB [id number]) Orientation Orientation/Cognition Level of Alertness Confusional State Orientation Name,Age,Birthday,Place Language Function Ability No Deficits Noted Safety Awareness Decreased Safety Awareness Memory Description No Deficits Noted Gross Range of Motion Upper Extremity ROM Impairments Defer to OT Lower Extremity ROM Assessment Within Functional Limits Strength Lower Extremity Strength Assessment Bilaterally Impaired Comments Strength Comments Pt with functional weakness in both legs today with transfers with strength no more than 3-/5 either leg and buckling at hips and knees with standing: pt overall feeling poorly M6 PT-IP Treatment Start: 01/22/24 15:50 Freq: NEEDED Status: Active Protocol: Document 01/24/24 12:07 TS (Rec: 01/24/24 12:29 TS [id number]) Physical Therapy Treatment Education Education Provided Precautions,Safety M7 PT-IP Assessment and Plan Start: 01/22/24 15:50 Freq: NEEDED Status: Active Protocol: Document 01/24/24 12:07 TS (Rec: 01/24/24 12:29 TS [id number]) PT Summary Assessment and Plan Potential Rehabilitation Potential Fair Summary Impairments Pain,ROM,Strength,Balance, Coordination,Sensation,Tone, Cognition,Bed Mobility, Transfers,Gait,Activity Tolerance Progress Towards Goals Progressing Toward Goals Assessment Summary Krista is making good progress with her mobility. She is SBA for logroll and supine to sit on EOB, she demonstrates good awareness of her precautions and sequencing. She progressed her gait to ~30' with FWW. She performed stairs x7 CGA with single rail, is slow to take steps, has no buckling or LOB. PT is recommeding pt return home with 24/7 assist from spouse. Goals Bed Mobility Goal Independent Transfer Goal Independent,Front Wheeled Walker Gait Goal Independent,Front Wheel Walker Gait Distance 100 Other Goals Pt will ascend and descend 7 steps with rail and no more than CGA to allow safe home entrance. Days to Meet Goals 10 Frequency of Treatment Frequency Of Treatment Once a Day Treatment Plan Physical Therapy Treatment Plan Bed Mobility Training,Transfer Training,Gait Training, Therapeutic Exercise,Balance Retraining,Post Op Education, Discharge Planning,Hot or Cold Pack,Neuromuscular Re-ed Precautions Abdominal Surgery Precautions Log Roll,Lifting Restrictions, Gait Belt above Incisional Area Weight Bearing Status Weight Bearing Status Weight Bear as Tolerated Recommendations To Nursing Amount of Assist Needed 1 Person Assist Discharge Recommendations PT Discharge Recommendations Home with 24/7 Assist Available,Home Health Transportation Needs at Discharge Private Vehicle,Wheelchair/ Cabulance
[2024-01-24 12:00] VITALS: BP 99/68; PULSE 78; RESP 16; TEMP 36.6; O2SAT 95
[2024-01-24] MEDS: OXYCODONE IR 5 MG TABLET PO ×2 (13:16→19:57)
--- NOTE | 2024-01-24 14:11 | PM.PNPO.1 ---
Subjective Subjective Date Patient Seen: 01/24/24 Time Patient Seen: 14:11 Interval history: S/p Xlap with bowel resection for internal hernia. Eating, large BM today that was uncomfortable on the abdominal wound. O/w eager to be home. Exam Vital Signs (past 8 hours): - 01/24/24 08:00 01/24/24 09:15 01/24/24 12:00 Temperature 98.3 F 97.8 F Pulse Rate 83 78 Respiratory Rate 16 16 Blood Pressure 115/54 L 99/68 Pulse Oximetry 95 95 Oxygen Delivery Method Room Air Oxygen Flow Rate 0 Oxygen Delivery Method Room Air Oxygen Flow Rate 0 Narrative Exam Narrative: abdomen: soft, flat, dressing intact. Objective Labs 01/24/24 06:20 01/24/24 06:20 Labs: Laboratory Results - last 24 hr 01/24/24 06:20 WBC 5.0 RBC 3.40 L Hgb 10.8 L Hct 31.0 L MCV 91.1 MCH 31.6 MCHC 34.7 RDW 13.1 Plt Count 236 Neut % (Auto) 65.5 Lymph % (Auto) 13.1 L [place] % (Auto) 16.6 H Eos % (Auto) 4.4 H Baso % (Auto) 0.4 Neut # (Auto) 3300 Lymph # (Auto) 700 L [place] # (Auto) 800 Eos # (Auto) 200 Baso # (Auto) 0 Sodium 133 L Potassium 3.9 Chloride 98 Carbon Dioxide 34 H BUN 10 Creatinine 0.54 Estimated GFR > 60 BUN/Creatinine Ratio 18.5 Glucose 107 Calcium 7.9 L PFSH Medical History Septic shock Infection of total right knee replacement Septic arthritis Osteoarthritis History of total right knee replacement Anemia Surgical History Status post revision of total replacement of right knee Hx of total knee arthroplasty Social History household members: spouse and family Smoking Status: Never smoker alcohol intake: current Assessment & Plan Post-op Postoperative Procedures: Procedures Operation Date: 01/21/24 16:15 Actual Procedure Side Surgeon p Exploratory Laparotomy with Small Bowel Resection Ermias Yeager MD Postoperative status: doing well Postoperative status narrative: no complications Postoperative plan: routine post-op care and ambulate Postoperative plan narrative: Likely able to discharge 1-2 days Time Spent With Patient Time with patient: less than 15 minutes Quality VTE Deep Vein Thrombosis/Pulmonary Embolism Present on Admission: No
[2024-01-24 16:00] VITALS: BP 105/45; PULSE 75; RESP 16; TEMP 36.7; O2SAT 96
[2024-01-24 19:30] VITALS: BP 110/54; PULSE 85; RESP 17; TEMP 36.6; O2SAT 95
[2024-01-25] MEDS: OXYCODONE IR 5 MG TABLET PO ×3 (04:11→16:00)
[2024-01-25] MEDS: ONDANSETRON 4 MG/2 ML INJ IV ×3 (04:11→19:54)
[2024-01-25 04:16] VITALS: BP 114/51; PULSE 79; RESP 19; TEMP 36.8; O2SAT 95
--- NOTE | 2024-01-25 07:41 | P.PN_ITS ---
Subjective Subjective Interval history: She was admitted with acute small-bowel obstruction and context of a recent resection of colon cancer. She failed to improve and was taken to the OR where she was found to have a segment of ischemic distal small bowel and proximal colon related to a volvulus type mechanism. She underwent limited resection and anastomosis and is having slow but steady progress after surgery. She is currently on a full liquid diet. S: She is progressing on a day-to-day basis. She has no nausea and did eat some cream of wheat today. She did have an abrupt explosive stool. She is still having pain and feels somewhat weak. She has not quite ready to discharge yet. Exam Vital Signs (past 8 hours): - 01/25/24 04:16 Temperature 98.3 F Pulse Rate 79 Respiratory Rate 19 Blood Pressure 114/51 L Pulse Oximetry 95 Oxygen Flow Rate 0 Oxygen Delivery Method Room Air Oxygen Flow Rate 0 Narrative Exam Narrative: NAD, alert and oriented. Fluent speech. Lungs are clear, normal rate and effort. Heart is regular, no murmur gallop or rub. Abdomen is soft, non distended. Wound dressed. Extremities are free of edema. Objective Labs 01/24/24 06:20 01/24/24 06:20 [facility] Medical History Septic shock Infection of total right knee replacement Septic arthritis Osteoarthritis History of total right knee replacement Anemia Surgical History Status post revision of total replacement of right knee Hx of total knee arthroplasty Social History household members: spouse and family Smoking Status: Never smoker alcohol intake: current Assessment & Plan Assessment & Plan narrative: 1. SBO secondary to adhesions and volvulous mechanism, present on admission and resolving. - S/P x lap with enterectomy and colectomy for ischemic colon (distal to ileocoloc anastamosis) and adhesionlysis. There was a large amount of turbid fluid in peritoneum. - clear liqs today - resumed anticoagulation (01/23). 2. Paroxysmal afib on anticoagulation, stable. - resume home eliquis today, 01/23. - on home diltiazem for rate control, will hold for now, can replace with IV prn dosing for rate control. 3. Remote colon cancer, not active. 4. Chronic anemia, stable. - history of anemia, labs slightly improved but likely dehdyration. Hg uptrending at 12.8. Continue to follow but no signs of active bleeding. 5. Hypokalemia, improved. -monitor. OOB, ambulate. DVT proph: Apixiban. DISPO possibly home 1 day. Time Spent With Patient Time with patient: 30 to 49 minutes with 50% spent counseling/coordinating care Quality VTE Deep Vein Thrombosis/Pulmonary Embolism Present on Admission: No
[2024-01-25 08:00] VITALS: BP 103/57; PULSE 82; RESP 16; TEMP 36.4; O2SAT 97
[2024-01-25] MEDS: APIXABAN 5 MG TABLET PO ×2 (08:14→20:06)
[2024-01-25] MEDS: ACETAMINOPHEN 325 MG TABLET 650 MG PO (08:14)
[2024-01-25] MEDS: SODIUM CHLORIDE 0.9% FLUSH 10 ML IV ×2 (08:15→20:34)
--- NOTE | 2024-01-25 10:21 | PM.CALLCOV.1 ---
Call Coverage Note Note Date of Patient Contact: 01/25/24 Narrative of Care Provided: Hypokalemic. Able to take ensure, self limiting to full liquids. Ok to discharge from surgery standpoint when cleared medically
[2024-01-25 12:00] VITALS: BP 104/51; PULSE 78; RESP 16; TEMP 36.4; O2SAT 96
--- NOTE | 2024-01-25 12:23 | PT.IPTN ---
Current Diagnoses Intestinal adhesions [bands], unspecified as to partial versus complete obstruction (01/18/24) Unspecified intestinal obstruction, unspecified as to partial versus complete obstruction (01/18/24) Surgery Performed Operation Date: 01/21/24 16:15 Actual Procedures p Exploratory Laparotomy with Small Bowel Resection - Ermias Yeager MD Physical Therapy Treatment Note M2 PT-IP Current Condition Start: 01/22/24 15:50 Freq: NEEDED Status: Active Protocol: Document 01/22/24 13:50 MB (Rec: 01/22/24 16:36 MB [id number]) Physical Therapy Current Condition Current Condition Evaluation Date 01/22/24 Treatment Diagnosis SBO s/p laparoscopic sx M3 PT-IP Subjective Start: 01/22/24 15:50 Freq: NEEDED Status: Active Protocol: Document 01/25/24 12:00 MB (Rec: 01/25/24 12:23 MB [id number]) Subjective Physical Therapy Visit Type Type Treatment Note Visit Start Time 12:00 Visit Stop Time 12:15 Number of LEATHER PIECE INSPECTOR Visits 0 Physical Therapy Visit Comments Patient Comments Pt states she does not want to have PT to reassess and then possibly treat BPPV d/t nausea and PT is also concerned about abdominal distention and health if she is positioned back quickly into extension. Therapy Pain Assessment Pain When Pain Assessed At Rest Pain Present Pain Present Pain Reported Location Lower abdominal Intensity 3 Scale Used Olivares-Tello (Faces) Pain Management Techniques Distraction,Re-positioning M4 PT-IP Mobility and Gait Start: 01/22/24 15:50 Freq: NEEDED Status: Active Protocol: Document 01/25/24 12:00 MB (Rec: 01/25/24 12:23 MB [id number]) PT-Transfer Assessment Sit to and From Stand Sit to and from Stand Standby Assistance,1 Person Assistance Equipment Transfer Assistive Device Gait Belt,Front Wheeled Walker Orthotic/Prosthetic Devices or Brace: No Transfer Ability Level of Assist Standby Assistance,1 Person Assistance,Use of Upper Extremities Comments Mobility Comments Pt sitting up in chair and left up on commode in BR with nearby and cues to pull [place] [facility] [place]. Pt is able to stand at sink and perform brushing teeth and brushing hair with SBA Gait Assessment Gait Gait Assistance Required: Standby Assistance Distance (Feet) 80 Able to Maintain Weight Bearing Status Yes During Gait Assistive Devices Assistive Device Gait Belt,Front Wheeled Walker Orthotic/Prosthetic Devices or Brace: No Gait Deviations General Gait Pattern Decreased Stride Length Factors Limiting Gait Function Factors Limiting Gait Function Decreased Activity Tolerance, Pain Comments Gait Comments Pt with slow mobility but much better mobility and gait since she started PT. She gait trains 10'x1 and 80'x2 with RW and SBA Stair Climbing Assessment Evaluation Level of Assist On Stairs Standby Assistance,Contact Guard Assistance,1 Person Assistance Devices Stair Climbing Assistive Devices Right Railing Technique/Endurance Stair Climbing Direction Ascend and Descend Stair Climbing Technique Step to Step Number of Steps Climbed 4 Stair Climbing Set # Repetitions (reps) 2 Comments Stair Climbing Comments Pt and state that rail is on the right for ascend and so she uses the right rail ascend and the same rail that is then on her left for descend. PT-Balance Assessment Sitting Balance and Reactions Static Sitting Balance Ability Good Dynamic Sitting Balance Ability Fair Standing Balance and Reactions Static Standing Balance Ability Good Dynamic Standing Balance Ability Fair Device Used RW M5 PT-IP Objective Assessments Start: 01/22/24 15:50 Freq: NEEDED Status: Active Protocol: Document 01/22/24 13:50 MB (Rec: 01/22/24 16:36 MB [id number]) Orientation Orientation/Cognition Level of Alertness Confusional State Orientation Name,Age,Birthday,Place Language Function Ability No Deficits Noted Safety Awareness Decreased Safety Awareness Memory Description No Deficits Noted Gross Range of Motion Upper Extremity ROM Impairments Defer to OT Lower Extremity ROM Assessment Within Functional Limits Strength Lower Extremity Strength Assessment Bilaterally Impaired Comments Strength Comments Pt with functional weakness in both legs today with transfers with strength no more than 3-/5 either leg and buckling at hips and knees with standing: pt overall feeling poorly M6 PT-IP Treatment Start: 01/22/24 15:50 Freq: NEEDED Status: Active Protocol: Document 01/25/24 12:00 MB (Rec: 01/25/24 12:23 MB [id number]) Physical Therapy Treatment Education Education Provided Precautions,Safety M7 PT-IP Assessment and Plan Start: 01/22/24 15:50 Freq: NEEDED Status: Active Protocol: Document 01/25/24 12:00 MB (Rec: 01/25/24 12:23 MB [id number]) PT Summary Assessment and Plan Potential Rehabilitation Potential Fair Summary Impairments Pain,ROM,Strength,Balance, Coordination,Sensation,Tone, Cognition,Bed Mobility, Transfers,Gait,Activity Tolerance Progress Towards Goals Progressing Toward Goals Assessment Summary Krista is moving better and progressing towards goals. Deferred BPPV reassessment and possible treatment again today. Goals Bed Mobility Goal Independent Transfer Goal Independent,Front Wheeled Walker Gait Goal Independent,Front Wheel Walker Gait Distance 100 Other Goals Pt will ascend and descend 7 steps with rail and no more than CGA to allow safe home entrance. Days to Meet Goals 10 Frequency of Treatment Frequency Of Treatment Once a Day Treatment Plan Physical Therapy Treatment Plan Bed Mobility Training,Transfer Training,Gait Training, Therapeutic Exercise,Balance Retraining,Post Op Education, Discharge Planning,Hot or Cold Pack,Neuromuscular Re-ed Precautions Abdominal Surgery Precautions Log Roll,Lifting Restrictions, Gait Belt above Incisional Area Weight Bearing Status Weight Bearing Status Weight Bear as Tolerated Recommendations To Nursing Amount of Assist Needed 1 Person Assist Discharge Recommendations PT Discharge Recommendations Home with 24/ Assist Available,Home Health Transportation Needs at Discharge Private Vehicle,Wheelchair/ Cabulance
[2024-01-25 19:20] VITALS: BP 103/52; PULSE 77; RESP 17; TEMP 36.7; O2SAT 97
[2024-01-25] MEDS: LACTATED RINGERS 1,000 ML 100 ML IV (20:34)
[2024-01-25 20:45] LABS: Add Manual Diff / Slide Review NO; Basophils Absolute Auto 100 /uL (0-100); Basophils Percent Auto 1.9 % (0-2); Eosinophils Absolute Auto 500 /uL (0-450); Eosinophils Percent Auto 6.5 % (2-4); Hematocrit 31.2 % (36-46); Hemoglobin 10.5 g/dL (12.0-16.0); Lymphocytes Absolute Auto 600 /uL (1100-4500); Lymphocytes Percent Auto 8.2 % (25-40); Mean Corpuscular HGB Conc 33.7 % (30-36); Mean Corpuscular Hemoglobin 30.5 PG (26-34); Mean Corpuscular Volume 90.4 fL (80-100); Monocytes Absolute Auto 700 /uL (0-900); Monocytes Percent Auto 9.6 % (3-14); Neutrophils Absolute Auto 5300 /uL (1500-7000); Neutrophils Percent Auto 73.8 % (50-75); Platelet Count 294 X10^3/uL (150-400); Red Blood Cell Count 3.45 X10^6/uL (4.0-5.2); Red Cell Distribution Width 13.5 % (11.6-14.8); White Blood Cell Count 7.2 X10^3/uL (4.5-11.0)
[2024-01-25 20:52] LABS: BUN Creatinine Ratio 13.6 (6-22); Blood Urea Nitrogen 8 mg/dL (7-17); Carbon Dioxide 37 mmol/L (22-32); Chloride 97 mmol/L (98-107); Estimated Glomerular Filt Rate > 60 mL/min (>60); Glucose 133 mg/dL (80-110); HEMOLYSIS < 15 (0-50); Potassium 3.6 mmol/L (3.4-5.1); Sodium 134 mmol/L (137-145)
[2024-01-26] MEDS: ACETAMINOPHEN 325 MG TABLET 650 MG PO ×3 (00:33→22:21)
[2024-01-26 00:34] VITALS: BP 114/52; PULSE 79; RESP 17; TEMP 36.9; O2SAT 96
[2024-01-26] MEDS: LACTATED RINGERS 1,000 ML 100 ML IV (05:37)
--- NOTE | 2024-01-26 05:47 | PC.NURSE ---
direct sales consultant: Patient is AxOx4, midline incision drsg is CDI w/ scant shadow drainage, complaints of mild-moderate pain in abdomen that increases with movement, medicated as ordered. Patient is fatigued, had poor PO intake d/t lethargy & nausea, mildly hypotensive, notified MD Bradford, IVF & labs ordered. IV Zofran given for nausea. Ambulates with 1 PA & FWW to bathroom. SCDs are on. Had x1 moderate-size BM overnight. Oriented to call-light, fall precautions in place.
[2024-01-26 06:00] VITALS: BP 118/54; PULSE 73; RESP 17; TEMP 36.3; O2SAT 96
[2024-01-26 08:00] VITALS: BP 117/55; PULSE 71; RESP 18; TEMP 37.2; O2SAT 97
[2024-01-26] MEDS: OXYCODONE IR 5 MG TABLET PO ×2 (10:10→14:49)
[2024-01-26] MEDS: APIXABAN 5 MG TABLET PO ×2 (10:10→20:44)
[2024-01-26] MEDS: ONDANSETRON 4 MG/2 ML INJ IV (10:10)
[2024-01-26] MEDS: SODIUM CHLORIDE 0.9% FLUSH 10 ML IV ×2 (10:11→20:45)
--- NOTE | 2024-01-26 11:25 | CM.DPC ---
DCP Cont. Reviewed EMR and team rounds for status updates. Met with pt at bedside to discuss possible d/c today. Pt shares that she's still struggling with stomach cramping, but feels as though she could manage it at home. No anticipated d/c home needs. If pt is cleared for d/c today, her spouse will drive her home. Will continue to monitor for any further needs.
[2024-01-26] MEDS: DOCUSATE 100 MG CAPSULE PO ×2 (11:53→20:45)
[2024-01-26] MEDS: SCOPOLAMINE 1 PATCH TOP (11:53)
[2024-01-26] MEDS: SENNOSIDES 8.6 MG TABLET PO (11:53)
[2024-01-26 14:04] VITALS: BP 99/58; PULSE 72; RESP 16; TEMP 36.9; O2SAT 96
--- NOTE | 2024-01-26 16:25 | P.PN_ITS ---
Subjective Subjective Interval history: She was admitted with acute small-bowel obstruction and context of a recent resection of colon cancer. She failed to improve and was taken to the OR where she was found to have a segment of ischemic distal small bowel and proximal colon related to a volvulus type mechanism. She underwent limited resection and anastomosis and is having slow but steady progress after surgery. She is currently on a full liquid diet. Slightly worsening abdominal pain today, has not had any further bowel movements but continues to pass gas. Not tolerating much oral intake today. Exam Vital Signs (past 8 hours): - 01/26/24 14:04 Temperature 98.5 F Pulse Rate 72 Respiratory Rate 16 Blood Pressure 99/58 L Pulse Oximetry 96 Oxygen Flow Rate 0 Oxygen Delivery Method Room Air Oxygen Flow Rate 0 Narrative Exam Narrative: NAD, alert and oriented. Fluent speech. Lungs are clear, normal rate and effort. Heart is regular, no murmur gallop or rub. Abdomen is soft but there is mild distension, appropriate tenderness. Extremities are free of edema. Objective Labs 01/25/24 20:03 01/25/24 20:03 Labs: Laboratory Results - last 24 hr 01/25/24 20:03 WBC 7.2 RBC 3.45 L Hgb 10.5 L Hct 31.2 L MCV 90.4 MCH 30.5 MCHC 33.7 RDW 13.5 Plt Count 294 Neut % (Auto) 73.8 Lymph % (Auto) 8.2 L [place] % (Auto) 9.6 Eos % (Auto) 6.5 H Baso % (Auto) 1.9 Neut # (Auto) 5300 Lymph # (Auto) 600 L [place] # (Auto) 700 Eos # (Auto) 500 H Baso # (Auto) 100 Sodium 134 L Potassium 3.6 Chloride 97 L Carbon Dioxide 37 H BUN 8 Creatinine 0.59 Estimated GFR > 60 BUN/Creatinine Ratio 13.6 Glucose 133 H Calcium 8.0 L PFSH Medical History Septic shock Infection of total right knee replacement Septic arthritis Osteoarthritis History of total right knee replacement Anemia Surgical History Status post revision of total replacement of right knee Hx of total knee arthroplasty Social History household members: spouse and family Smoking Status: Never smoker alcohol intake: current Assessment & Plan Assessment & Plan narrative: 1. SBO secondary to adhesions and volvulous mechanism, present on admission and resolving. - S/P x lap with enterectomy and colectomy for ischemic colon (distal to ileocoloc anastamosis) and adhesionlysis. There was a large amount of turbid fluid in peritoneum. - ordered for a regular diet but not tolerating well today. - resumed anticoagulation (01/23). 2. Paroxysmal afib on anticoagulation, stable. - resume home eliquis today, 01/23. - on home diltiazem for rate control, will hold for now, can replace with IV prn dosing for rate control. BP is soft, rate is controlled, still holding diltiazem. 3. Remote colon cancer, not active. 4. Chronic anemia, stable. - history of anemia, labs slightly improved but likely dehdyration. Hg uptrending at 12.8. Continue to follow but no signs of active bleeding. H/h now down to 10.5. Appears to be near baseline around 11 based on previous labs, though not entirely clear. 5. Hypokalemia, improved. -monitor. OOB, ambulate. DVT proph: Apixiban. DISPO possibly home 1 day. if improvement in nausea , abdominal pain. Quality VTE Deep Vein Thrombosis/Pulmonary Embolism Present on Admission: No
[2024-01-26 20:00] VITALS: BP 130/69; PULSE 80; RESP 16; TEMP 36.8; O2SAT 95
[2024-01-27 02:00] VITALS: BP 135/77; PULSE 82; RESP 17; TEMP 36.8; O2SAT 95
[2024-01-27] MEDS: ACETAMINOPHEN 325 MG TABLET 650 MG PO (03:54)
[2024-01-27 09:05] VITALS: BP 132/69; PULSE 75; RESP 16; TEMP 37.2; O2SAT 96
[2024-01-27] MEDS: SODIUM CHLORIDE 0.9% FLUSH 10 ML IV (09:18)
[2024-01-27] MEDS: APIXABAN 5 MG TABLET PO (09:18)
--- NOTE | 2024-01-27 10:24 | PM.DS.1 ---
History of Present Illness History of Present Illness Date Patient Seen: 01/27/24 Time Patient Seen: 10:25 Chief complaint: vomiting, severe abd pain Narrative: Per admitting provider, 73 F with PMH of septic arthritis, colon CA s/p partial colectomy, remote breast CA, afib on xarelto who presented with sudden onset abdominal pain, nausea, vomiting now starting 2 nights ago. She was admitted overnight, orders placed by tele-hospitalist with a bowel obstruction, with possible transition point on CT imaging. General surgery consulted but has not evaluated patient as of this time. She has continued abdominal pain this morning, with wretching and continuous nausea. Required dose increase in dilaudid. Discussed risks and benefits of NG tube insertion, patient was agreeable and NG tube ordered. Discharge Providers Provider Date of admission: 01/18/24 18:37 Discharge Date: 01/27/24 Primary care physician: Sridhar Sawyer MD Consults: 01/19/24 09:00 Consult to General Surgery Routine Comment: Consulting Provider: Suly Copeland Reason for consultation: sbo 01/22/24 12:21 Consult to Physical Therapy Evaluate & Treat Comment: Physician Instructions: Evaluate and Treat Discharge provider: Brian Pierre DO Summary Hospital Course Discharge Diagnosis: 1. SBO secondary to adhesions and volvulous mechanism, present on admission and resolving. 2. Paroxysmal afib on anticoagulation, stable. 3. Remote colon cancer, not active. 4. Chronic anemia, stable. 5. Hypokalemia, improved. Hospital Course: This is a 73 year old female with PMH of remote colon CA, paroxysmal afib, anemia who was admitted with a bowel obstruction. This did not resolve with conservative management and patient was taken to the operating room where a lysis of adhesions and bowel resection was performed for ischemia. She took some time to recover after surgery, but was able to resume anticoagulation. On 01/27 her pain had improved, she was having less bloating, and was tolerating her diet with improved bowel movements. She was discharged home with home health per therapy recommendations. Her home diltiazem was held during her stay, but can be safely resumed on discharge given overall improvement in BP. No other changes are recommended to her home medications, she was provided pain relief and nausea relief medications for home. She will follow up with PCP and surgery clinic after discharge. Time Spent with Patient Time spent: Greater than 30 minutes Exam Vital Signs (past 8 hours): - 01/27/24 09:05 Temperature 98.9 F Pulse Rate 75 Respiratory Rate 16 Blood Pressure 132/69 Pulse Oximetry 96 Oxygen Flow Rate 0 Oxygen Delivery Method Room Air Oxygen Flow Rate 0 Narrative Exam Narrative: NAD, alert and oriented. Fluent speech. Lungs are clear, normal rate and effort. Heart is regular, no murmur gallop or rub. Abdomen is soft non distended today, appropriate tenderness. Extremities are free of edema. Objective Labs 01/25/24 20:03 01/25/24 20:03 PFS Medical History Septic shock Infection of total right knee replacement Septic arthritis Osteoarthritis History of total right knee replacement Anemia Surgical History Status post revision of total replacement of right knee Hx of total knee arthroplasty Social History household members: spouse and family Smoking Status: Never smoker alcohol intake: current Discharge Plan Discharge Plan Patient Disposition: Home Health Service Provider Discharge Comment: You were admitted to the hospital with a bowel obstruction that required surgery to resolve. You improved after surgery. Now improved for discharge home. Advance diet as tolerated, follow up with general surgery clinic after discharge. Discharge orders & Medications Prescriptions: New oxycodone 5 mg tablet 5 mg PO Q8H PRN (Reason: pain) 7 Days Qty: 14 0RF metoclopramide HCl [Reglan] 5 mg tablet 5 mg PO Q6H PRN (Reason: nausea and vomiting) 30 Days Qty: 30 0RF Rx Instructions: administer 30 minutes before meals Continued ondansetron HCl 4 mg Tablet 4 mg PO Q6H PRN (Reason: Nausea And Vomiting) acetaminophen 650 mg Tablet Extended Release 650 mg PO Q8H PRN (Reason: Pain) ascorbic acid (vitamin C) 500 mg Tablet 1,000 mg PO QDAY ferrous sulfate 325 mg (65 mg iron) Tablet 325 mg PO BID cholecalciferol (vitamin D3) 2,000 unit Tablet 4,000 unit PO DAILY apixaban 5 mg Tablet 5 mg PO BID dexlansoprazole 60 mg capsule,biphase delayed releas 1 cap PO QPM Patient Comments: take 1 capsule by mouth 30 MINUTES BEFORE DINNER diltiazem HCl 120 mg capsule,ext.rel 24h degradable 1 cap PO DAILY vitamin B complex Capsule 1 cap PO DAILY ADVANCED Calcium 200 mg calcium- 200 unit Tablet 1 tab PO DAILY Follow up/Referrals: Sridhar Sawyer MD [Primary Care Provider] - Diet/Activity/Treatments Diet: Diet as Tolerated and Regular Activity: As tolerated, no heavy lifting (10-15 lbs only) after surgery. Visit Report/Discharge Packet Instructions: DI for Prescription Opioid Use, [facility]: Wound Care Stand Alone Forms: Congestive Heart Failure, Patient Portal/API, Stroke Signs & Symptoms, Surgery Discharge Discharge Data Primary Care Provider: Sridhar Sawyer Quality VTE Deep Vein Thrombosis/Pulmonary Embolism Present on Admission: No
--- NOTE | 2024-01-27 10:34 | PT.IPTN ---
Current Diagnoses Intestinal adhesions [bands], unspecified as to partial versus complete obstruction (01/18/24) Unspecified intestinal obstruction, unspecified as to partial versus complete obstruction (01/18/24) Surgery Performed Operation Date: 01/21/24 16:15 Actual Procedures p Exploratory Laparotomy with Small Bowel Resection - Ermias Yeager MD Physical Therapy Treatment Note M2 PT-IP Current Condition Start: 01/22/24 15:50 Freq: NEEDED Status: Active Protocol: Document 01/22/24 13:50 MB (Rec: 01/22/24 16:36 MB [id number]) Physical Therapy Current Condition Current Condition Evaluation Date 01/22/24 Treatment Diagnosis SBO s/p laparoscopic sx M3 PT-IP Subjective Start: 01/22/24 15:50 Freq: NEEDED Status: Active Protocol: Document 01/27/24 10:15 MB (Rec: 01/27/24 10:34 MB [id number]) Subjective Physical Therapy Visit Type Type Treatment Note Visit Start Time 10:15 Visit Stop Time 10:29 Number of FORKLIFT DRIVER Visits 0 Physical Therapy Visit Comments Patient Comments Pt is agreeable to PT. Her stomach feels less distended and she con't with BPPV symptoms. Therapy Pain Assessment Pain When Pain Assessed At Rest Pain Present Pain Present Pain Reported Location Lower abdominal Intensity 2 Scale Used Olivares-Tello (Faces) Pain Management Techniques Distraction,Re-positioning M4 PT-IP Mobility and Gait Start: 01/22/24 15:50 Freq: NEEDED Status: Active Protocol: Document 01/27/24 10:15 MB (Rec: 01/27/24 10:34 MB [id number]) PT-Bed Mobility Assessment Rolling Type of Rolling Log Rolling Level of Assist Standby Assistance Supine to Sit Supine to Sit Standby Assistance,1 Person Assistance Scooting Scooting to Edge of Bed Standby Assistance PT-Transfer Assessment Sit to and From Stand Sit to and from Stand Standby Assistance,1 Person Assistance Equipment Transfer Assistive Device Gait Belt,Front Wheeled Walker Orthotic/Prosthetic Devices or Brace: No Transfers Transfer Destination Toilet Transfer Technique Stepping Transfer Ability Level of Assist Standby Assistance,1 Person Assistance,Use of Upper Extremities Comments Mobility Comments Bed flat and no rail for bed mobility and log rolling today . Pt requires cues not to reach for the rail and she moves slowly. Gait Assessment Gait Gait Assistance Required: Standby Assistance Distance (Feet) 80 Able to Maintain Weight Bearing Status Yes During Gait Assistive Devices Assistive Device Gait Belt,Front Wheeled Walker Orthotic/Prosthetic Devices or Brace: No Gait Deviations General Gait Pattern Decreased Stride Length Factors Limiting Gait Function Factors Limiting Gait Function Decreased Activity Tolerance, Pain Comments Gait Comments Pt gait trains 10'x1 and 80'x2 with RW and SBA, slow jose luis Stair Climbing Assessment Evaluation Level of Assist On Stairs Standby Assistance,1 Person Assistance Devices Stair Climbing Assistive Devices Right Railing Technique/Endurance Stair Climbing Direction Ascend and Descend Stair Climbing Technique Step to Step Number of Steps Climbed 4 Stair Climbing Set # Repetitions (reps) 2 Comments Stair Climbing Comments Much easier stair mobility today PT-Balance Assessment Sitting Balance and Reactions Static Sitting Balance Ability Good Dynamic Sitting Balance Ability Fair Standing Balance and Reactions Static Standing Balance Ability Good Dynamic Standing Balance Ability Fair Device Used RW M5 PT-IP Objective Assessments Start: 01/22/24 15:50 Freq: NEEDED Status: Active Protocol: Document 01/22/24 13:50 MB (Rec: 01/22/24 16:36 MB [id number]) Orientation Orientation/Cognition Level of Alertness Confusional State Orientation Name,Age,Birthday,Place Language Function Ability No Deficits Noted Safety Awareness Decreased Safety Awareness Memory Description No Deficits Noted Gross Range of Motion Upper Extremity ROM Impairments Defer to OT Lower Extremity ROM Assessment Within Functional Limits Strength Lower Extremity Strength Assessment Bilaterally Impaired Comments Strength Comments Pt with functional weakness in both legs today with transfers with strength no more than 3-/5 either leg and buckling at hips and knees with standing: pt overall feeling poorly M6 PT-IP Treatment Start: 01/22/24 15:50 Freq: NEEDED Status: Active Protocol: Document 01/27/24 10:15 MB (Rec: 01/27/24 10:34 MB [id number]) Physical Therapy Treatment Education Education Provided Precautions,Safety M7 PT-IP Assessment and Plan Start: 01/22/24 15:50 Freq: NEEDED Status: Active Protocol: Document 01/27/24 10:15 MB (Rec: 01/27/24 10:34 MB [id number]) PT Summary Assessment and Plan Potential Rehabilitation Potential Fair Summary Impairments Pain,ROM,Strength,Balance, Coordination,Sensation,Tone, Cognition,Bed Mobility, Transfers,Gait,Activity Tolerance Progress Towards Goals Progressing Toward Goals Assessment Summary Krista con't to move better and requests to defer BPPV assessment and treatment to HH or OPPT. She will have assistance at d/c. Goals Bed Mobility Goal Independent Transfer Goal Independent,Front Wheeled Walker Gait Goal Independent,Front Wheel Walker Gait Distance 100 Other Goals Pt will ascend and descend 7 steps with rail and no more than CGA to allow safe home entrance. Days to Meet Goals 10 Frequency of Treatment Frequency Of Treatment Once a Day Treatment Plan Physical Therapy Treatment Plan Bed Mobility Training,Transfer Training,Gait Training, Therapeutic Exercise,Balance Retraining,Post Op Education, Discharge Planning,Hot or Cold Pack,Neuromuscular Re-ed Precautions Abdominal Surgery Precautions Log Roll,Lifting Restrictions, Gait Belt above Incisional Area Weight Bearing Status Weight Bearing Status Weight Bear as Tolerated Recommendations To Nursing Amount of Assist Needed 1 Person Assist Discharge Recommendations PT Discharge Recommendations Home with 24/ Assist Available,Home Health Transportation Needs at Discharge Private Vehicle,Wheelchair/ Cabulance
--- NOTE | 2024-01-27 12:28 | CM.DPC ---
DCP Cont. Reviewed EMR and team rounds for status updates. Plan is for pt to d/c back home today. Per PT request, this [facility] set up [facility], placed orders in EMR. [facility] can officially accept, and will contact pt post-d/c to set up admission for services time/date. No further DCP needs identified at this time.
--- NOTE | 2024-01-27 13:39 | PC.NURSE ---
Pt a&O offers no overt c/o. Though tired is moving and taking meals and following commands. D/c instructions given after orders written. Pt d/c instructions given to be Pt and . Pt readied for D/C. Iv d/c'd per protocol. wealth management consultant to car via w/c.
--- NOTE | 2024-01-30 05:48 | PC.NURSE ---
Late entry: administered Dilaudid 1mg for C/o pain on 01/21/24 @ 2247 per patients request.
== END 2024-01-27 13:26 | disposition home health service (06) | DRG 329 ==
LOC: ED 18:32 → AC 01-19 08:06
PROVIDERS: Internal Medicine; Surgery; Admitting Provider Student in an Organized Health Care Education/Training Program; Emergency Provider Emergency Medicine; Family Provider Orthopaedic Surgery; PCP Family Medicine; Referring Provider Emergency Medicine; Visit Provider Student in an Organized Health Care Education/Training Program
PROC: 0DBE0ZZ Excision of Large Intestine, Open Approach (ICD-10-PCS; CPT 49000; principal; 2024-01-21 16:15)
DX: K56.50 Intestinal adhesions [bands], unspecified as to partial versus complete obstruction (principal); K55.019 Acute (reversible) ischemia of small intestine, extent unspecified; K55.039 Acute (reversible) ischemia of large intestine, extent unspecified; I48.0 Paroxysmal atrial fibrillation; D64.89 Other specified anemias; E87.6 Hypokalemia; K56.2 Volvulus; K21.9 Gastro-esophageal reflux disease without esophagitis; Z85.038 Personal history of other malignant neoplasm of large intestine; Z90.49 Acquired absence of other specified parts of digestive tract; Z79.01 Long term (current) use of anticoagulants
CPT/HCPCS: 36415; 71045; 74018; 74019; 74177; 80048; 80053; 81003; 83690; 85025; 93005; 96365; 96366; 96375; 96376; 97116; 97161; 97530; 99231; 99232; 99284; 99285; C9113; C9290; J0136; J0780; J1170; J2270; J2310; J2405; J2543; J2704; J2765; J7050; Q9967